=== PATIENT | male | born 1965 | race Caucasian/White ===

== ENCOUNTER → 2020-07-10 08:17 | Outpatient (CLI) | payer OTHER, SELFPAY ==
[2020-07-10 08:57] LABS: Add Manual Diff / Slide Review NO; Basophils Absolute Auto 100 /uL (0-100); Basophils Percent Auto 0.7 % (0-2); Eosinophils Absolute Auto 200 /uL (0-450); Eosinophils Percent Auto 2.3 % (2-4); Hematocrit 43.2 % (41-53); Hemoglobin 15.3 g/dL (13.5-17.5); Lymphocytes Absolute Auto 2800 /uL (1100-4500); Lymphocytes Percent Auto 36.9 % (25-40); Mean Corpuscular HGB Conc 35.4 % (30-36); Mean Corpuscular Hemoglobin 31.3 PG (26-34); Mean Corpuscular Volume 88.4 fL (80-100); Monocytes Absolute Auto 500 /uL (0-900); Monocytes Percent Auto 6.8 % (3-14); Neutrophils Absolute Auto 4100 /uL (1500-7000); Neutrophils Percent Auto 53.3 % (50-75); Platelet Count 199 X10^3/uL (150-400); Red Blood Cell Count 4.88 X10^6/uL (4.5-5.9); Red Cell Distribution Width 12.9 % (11.6-14.8); White Blood Cell Count 7.6 X10^3/uL (4.5-11.0)
[2020-07-10 09:03] LABS: Carbon Dioxide 30 mmol/L (22-32); Chloride 104 mmol/L (98-107); HEMOLYSIS < 15 (0-50); Potassium 4.4 mmol/L (3.4-5.1); Sodium 138 mmol/L (137-145)
[2020-07-10 09:04] LABS: Hemoglobin A1C% w Est Avg Glu 7.2 % (4.0-6.0)
== END ==
PROVIDERS: Referring Provider Orthopaedic Surgery; Visit Provider Orthopaedic Surgery
DX: Z01.818 Encounter for other preprocedural examination (principal); Z01.812 Encounter for preprocedural laboratory examination; R73.9 Hyperglycemia, unspecified
CPT/HCPCS: 36415; 80051; 83036; 85025; 93005; 93010

== ENCOUNTER → 2020-07-23 10:20 | Outpatient (CLI) | payer OTHER, SELFPAY ==
[2020-07-23 12:56] LABS: COVID19 -Nasal RAPID Negative (Negative)
== END ==
PROVIDERS: Visit Provider Physician Assistant
DX: Z11.59 Encounter for screening for other viral diseases (principal)
CPT/HCPCS: 87635

== ENCOUNTER 2020-07-25 10:27 | Day surgery (SDC) | payer OTHER, SELFPAY ==
[2020-07-20 09:47] VITALS: BMI 39.0
[2020-07-25] VITALS (16 sets, daily range): BP systolic 151–211; BP diastolic 67–98; PULSE 50–64; RESP 10–23; TEMP 36.1–36.7; O2SAT 92–99; BMI 39.0
--- NOTE | 2020-07-25 10:35 | DI.RAD.S_ITS ---
PROCEDURE: XR KNEE RT 1TO2V INDICATIONS: post operative right knee TECHNIQUE: 2 view(s) of the knee acquired. COMPARISON: None. FINDINGS: Bones: Patient is status post knee joint arthroplasty. Hardware components are in expected positions. Visualized bony structures are intact. Soft tissues: Overlying postoperative changes are noted. IMPRESSION: Status post right total knee arthroplasty. Dictated by: Shira Crane M.D. on 07/25/2020 at 15:59 Approved by: Shira Crane M.D. on 07/25/2020 at 15:59
[2020-07-25] MEDS: ACETAMINOPHEN 325 MG TABLET 975 MG PO (11:09)
--- NOTE | 2020-07-25 11:10 | PM.PREOP ---
Pre-operative Note COVID-19 COVID-19 status: Negative Result date/Date tested (Pos, Neg/Pending): 07/23/20 Interval Note History & Physical reviewed/Exam performed by Physician: Yes Changes to H&P: No
[2020-07-25] MEDS: PREGABALIN 75 MG CAPSULE PO (11:11)
[2020-07-25] MEDS: LACTATED RINGERS 1,000 ML 42 ML IV (11:11)
--- NOTE | 2020-07-25 11:12 | P.OP_ITS ---
Operative Date/Time/Diagnoses Date of procedure: 07/25/20 Time of procedure: 13:34 Pre-op diagnosis: Right knee osteoarthritis Post-op diagnosis: same Procedure & Clinicians Procedure: Right total knee arthroplasty Same procedure as scheduled: Yes Indications: The patient presents today for total knee arthroplasty after failure of conservative treatment. The nature of the procedure including the risks and benefits, alternatives, postoperative course and expected outcome were discussed and all questions answered. Consent was obtained. Operative site confirmed and marked. Surgeon: Flo Camacho Scoreboard Operator: Khanh Duran Anesthesia Type: General, Spinal, Peripheral nerve block and Local Operative Notes Closure Type: primary Specimen(s): none sent Prosthetic devices, grafts, tissues, transplants, or devices: Saucedo and Nephew Mark BCS: 6 femoral component, 7 tibial component, 9 mm BCS polyethylene tray and 35 x 9 mm round patella Applied: implant(s) Estimated Blood Loss (mL): 5 Blood products transfused: none Tourniquet time (min): 60 Procedure in detail: The patient was taken to the operative suite and placed under anesthesia. The patient was given prophylactic antibiotics prior to surgery. The patient was also given tranexamic acid, 1 g, just prior to surgery for postoperative hemostasis. The lateral knee was prepped and the joint injected with 20 mL of 1% Lidocaine with epinephrine. The knee was then prepped and draped in usual sterile fashion. The leg was exsanguinated with an Esmarch dressing and the tourniquet raised to 250 torr. A 15 cm anterior incision was made. Next a medial trivector arthrotomy was made. The extensor mechanism was marked to ensure accurate repair. Initial exposing dissection was carried out medially and laterally. The knee was then flexed and the intramedullary femoral guide rob placed. The distal femoral cut was made in 6? of valgus at the +2 position. The femoral size was measured and the appropriate cutting block was then placed and the anterior, posterior and chamfer cuts made. The intramedullary tibial alignment rob was then placed. The guide was set to remove approximately 11 mm from the less affected lateral side. The proximal tibial cut was then made with an oscillating saw. All meniscus and bony debris was then removed. Posterior femoral osteophytes removed with a curved osteotome. Flexion extension gaps were checked. No specific balancing was required other than routine exposure and removal of osteophytes. The soft tissues were then injected with a combination of 20 mL of half percent Marcaine with epinephrine and 20 mL of Exparel. The trial components were then placed. The knee was then extended and the patellar thickness was measured and a cut made removing approximately 9 mm of bone. The patella was then sized and drilled. Some excess lateral bone was excised and the patellofemoral ligament released. The knee went into full extension and flexion beyond 130?. There was excellent medial-lateral balance throughout motion. Patellar tracking was excellent. The trial components were removed and the knee was cleansed with Pulsavac irrigation and dried. The final components were cemented with high viscosity vacuum mixed bone cement with antibiotics. The joint was filled with a dilute Betadine solution. The knee was held in extension and the patellar clamped until the cement was adequately cured. The knee was then irrigated. The extensor mechanism was closed with 5 interrupted #1 Vicryl sutures and a running Quill suture at approximately 90 degrees of flexion. The joint was then injected with a combination of 1 g of tranexamic acid and 20 mL of quarter percent Marcaine with epinephrine. The subcutaneous tissue was closed with 2 0 Vicryl. The skin was closed with absorbable subcuticular sutures and surgical adhesive. An Aquacel dressing and Quincy wrap were then applied. The patient tolerated the procedure well and was returned to recovery room in good condition. Complications: none Post-operative Condition: stable Disposition: PACU Plan for aftercare: Proliance Joint Care Protocol.
[2020-07-25] MEDS: CELECOXIB 200 MG CAPSULE PO (11:13)
[2020-07-25] MEDS: CEFAZOLIN 2 GM/100 ML FROZ.PIGGY IV (11:58)
--- NOTE | 2020-07-25 11:59 | SUR.PREOP ---
1145 Nerve block to RLE by Dr. Amos. pt on O2 at 2L SCRAP CUTTER and continuous monitoring (see strips). Pt tolerated procedure well without pain. Stated that he didn't realize how tense he was until the pre-medication was given. present throughout process. Maintained adequate resp, oxygenation, and VS.
[2020-07-25] MEDS: LIDOCAINE 1% W/EPI 20 ML INJ (12:05)
--- NOTE | 2020-07-25 12:29 | SUR.OPER ---
Supine on padded OR bed. Pillow under head, arms secured on padded armboards <90 degree abduction. Safety belt across torso. Non-operative leg secured with tape over blanket over lower leg. Operative leg secured in DeMayo/Josue positioner. Foam padded brace at thigh of operative leg.
[2020-07-25] MEDS: BUPIVACAINE 0.25% W/ EPI (PF) 40 ML, BUPIVACAINE LIPOSOME 266 MG, SODIUM CHLORIDE 0.9% ... INJ (12:38)
[2020-07-25] MEDS: BUPIVACAINE 0.25% W/ EPI (PF) 20 ML, TRANEXAMIC ACID 1,000 MG, SODIUM CHLORIDE 0.9% 10 ML INJ (12:39)
[2020-07-25] MEDS: SODIUM CHLORIDE IRRIG SOLUTION 250 ML, POVIDONE-IODINE SPONGE STICKS 1 APPLIC IRR (12:41)
[2020-07-25] MEDS: CEFAZOLIN 1 GM VIAL IV (12:44)
--- NOTE | 2020-07-25 12:52 | P.PCN_ITS ---
Procedures Date/Time Date of procedure: 07/25/20 Time of procedure: 11:45 General Procedure description: Ultrasound guided adductor canal nerve block for post op pain control after right total knee arthroplasty by Dr. Camacho. Risk and be nefits of procedure discussed with patient. ASA monitoring applied to patient. O2 given via nasal cannula. 2 mg Versed and 50 mcg fentanyl given for procedural sedation. Skin site was prepped with chlorhexidine and allowed to fully dry. Sterile gloves, mask, hat and probe cover were used to maintain sterility. 2% lidocaine and 30ga needle was used to make a small skin wheal at needle insertion site. Under ultrasound guidance, a 21ga 100mm Pajunk needle was directed into the adductor canal near femoral artery and saphenous nerve at the level of mid thigh. Patient reported no parasthesias. After negative aspiration, 20 mL 0.5% ropivicaine and 10mg dexamethasone were injected around saphenous n erve. Patient tolerated procedure well.
--- NOTE | 2020-07-25 14:32 | SUR.PHASEI ---
Pt arrived, airway needing supplemental 02 and chin lift for patency. O2 weaned to 2/l and pt taking ice chips freely. Report called to Courtney, pt transported up on room air.
[2020-07-25] MEDS: lisinopriL 5 MG TABLET PO (15:01)
[2020-07-25] MEDS: LACTATED RINGERS 1,000 ML 100 ML IV (15:50)
[2020-07-25] MEDS: ACETAMINOPHEN 325 MG TABLET 650 MG PO ×2 (15:51→20:57)
[2020-07-25] MEDS: IBUPROFEN 400 MG TABLET PO ×2 (15:51→20:58)
--- NOTE | 2020-07-25 16:38 | PM.DS.1 ---
History of Present Illness History of Present Illness Date Patient Seen: 07/25/20 Time Patient Seen: 16:38 Chief complaint: Right Total Knee Arthroplasty *OPB* Narrative: Patient's pain is well controlled. Denies fever/ chills. No nausea /vomiting. Denies any shortness or chest pain. Discharge Providers Provider Discharge Date: 07/25/20 Primary care physician: Doctor Simona MD Consults: 07/25/20 14:36 Consult to Discharge Planning Routine Comment: Consult to Physical Therapy Evaluate & Treat Comment: Physician Instructions: postop TKA protocol Consult to Respiratory Therapy Evaluate & Treat Comment: Physician Instructions: Evaluate and treat Discharge provider: Khanh Duran PA-C Summary Hospital Course Discharge Diagnosis: Right knee osteoarthritis Hospital Course: rocedure: Right total knee arthroplasty Same procedure as scheduled: Yes Indications: The patient presents today for total knee arthroplasty after failure of conservative treatment. The nature of the procedure including the risks and benefits, alternatives, postoperative course and expected outcome were discussed and all questions answered. Consent was obtained. Operative site confirmed and marked. Surgeon: Flo Camacho Junior Underwriter: Khanh Duran Anesthesia Type: General, Spinal, Peripheral nerve block and Local Operative Notes Closure Type: primary Specimen(s): none sent Prosthetic devices, grafts, tissues, transplants, or devices: Saucedo and Nephew Mark BCS: 6 femoral component, 7 tibial component, 9 mm BCS polyethylene tray and 35 x 9 mm round patella Applied: implant(s) Estimated Blood Loss (mL): 5 Blood products transfused: none Tourniquet time (min): 60 Status at Discharge Cognitive/behavioral status at discharge: at baseline, oriented Functional status at discharge: uses cane/walker Overall status at discharge: patient is progressing back to baseline Time Spent with Patient Time spent: Less than 30 minutes Exam Vital Signs (past 8 hours): - 07/25/20 10:46 07/25/20 13:51 07/25/20 13:55 Temperature 98.1 F 97.9 F Pulse Rate 54 L 58 L 56 L Respiratory Rate 16 10 L 22 Blood Pressure 181/82 H 151/98 H 153/77 H Pulse Oximetry 98 92 98 07/25/20 14:00 07/25/20 14:05 07/25/20 14:10 Temperature Pulse Rate 54 L 56 L 62 Respiratory Rate 16 17 20 Blood Pressure 155/80 H 152/77 H 158/80 H Pulse Oximetry 98 98 98 07/25/20 14:15 07/25/20 14:25 07/25/20 14:35 Temperature 98 F 97.5 F L Pulse Rate 56 L 57 L 56 L Respiratory Rate 20 23 14 Blood Pressure 165/80 H 157/83 H 195/75 H Pulse Oximetry 98 96 99 07/25/20 15:01 07/25/20 15:05 07/25/20 15:35 Temperature 97.2 F L 97.0 F L Pulse Rate 50 L 54 L 57 L Respiratory Rate 16 16 Blood Pressure 211/88 H 158/89 H 167/75 H Pulse Oximetry 97 96 Oxygen Delivery Method Nasal Cannula Oxygen Flow Rate 0 Narrative Exam Narrative: 54-year-old male resting comfortably in bed in no apparent distress. Dressing is clean, dry and intact. Sensation grossly intact to light touch bilateral lower extremities. Motor functions intact bilateral lower extremities. Both legs are warm and dry. [facility] Medical History Acid reflux Asthma Bleeding ulcer (~1996) Bursitis of both knees Diabetes Easy bruisability Eczema Gout HTN (hypertension) Meningitis spinal (~1996) Osteoarthritis Psoriasis Sleep apnea Surgical History H/O vasectomy Hx of arthroscopy of left knee Hx of eye surgery (~2003) Hx of hernia repair Social History household members: spouse and children Smoking Status: Former smoker alcohol intake: current Discharge Assessment & Plan Assessment and Plan Assessment: Patient progressing as expected status post right total knee arthroplasty. Plan of Treatment: Patient work with physical therapy and discharged to safe to do so. Patient will need to urinate prior to leaving as well. Patient has pain meds at home. Pain meds to be taken as directed. Patient also take Tylenol and anti-inflammatory as directed. He will be on 81 mg aspirin b.i.d.. Follow-up as scheduled [facility] in 2 weeks. Discharge Plan Discharge Plan Patient Disposition: Home Discharge orders & Medications Discharge Orders: Discharge (Order); Ordered 07/25/20 Ordered By: Khanh Duran Prescriptions: Continued metformin 500 mg Tablet 1,000 mg PO SEEINSTR RF: 0 fexofenadine 180 mg Tablet 180 mg PO DAILY RF: 0 aspirin 81 mg Tablet,Delayed Release (Dr/Ec) 81 mg PO DAILY RF: 0 montelukast 10 mg Tablet 10 mg PO DAILY RF: 0 lisinopril 5 mg Tablet 5 mg PO DAILY RF: 0 levalbuterol tartrate 45 mcg/actuation Hfa Aerosol Inhaler 2 puff INHALATION Q4-6H PRN (Reason: Asthma) RF: 0 Advair HFA 230-21 mcg/actuation Hfa Aerosol Inhaler 2 puff INHALATION BID RF: 0 Novolin N NPH U-100 Insulin 100 unit/mL Suspension 40 unit SUBCUT BID RF: 0 diphenhydramine-acetaminophen [Acetaminophen PM] 25-500 mg Tablet 2 tab PO BEDTIME RF: 0 Follow up/Referrals: Khanh Duran PA-C [[employer]] - Flo Camacho MD [Physician] - 2 Weeks Doctor Jarvis MD [Primary Care Provider] - Diet/Activity/Treatments Diet: Regular Activity: Slowly progress weight-bearing and activity as tolerated. Daily knee range of motion exercises. Cold/Heat Therapy: May use ice for 20 minutes at a time as needed for pain. Other treatments: [facility]liance Joint Care Protocol. Skin/Wound/Dressing Care Report to your healthcare provider any signs of infection, such as:: chills, fever, increased pain, unusual drainage and unusual redness Dressing: May leave dressing in place until follow-up if it remains intact. May shower over the dressing as long as it remains sealed. Visit Report/Discharge Packet Instructions: DI for Knee Replacement Discharge Data Primary Care Provider: Doctor Simona Attending Provider: Flo Camacho Quality VTE Deep Vein Thrombosis/Pulmonary Embolism Present on Admission: No
--- NOTE | 2020-07-25 19:20 | PC.NURSE ---
Addendum entered by Ysabel Jaramillo R.N. 07/25/20 22:45: PVR 647 ml. Pt declined straight cath. States he will void again soon. Original Note: Pt stood up to voided and noted he had incontinent void in bed, continued to void on floor without feeling the stream. BP remains elevated. Notified Dr. Saucedo, Per MD padron to cancel discharge and bladder scan to assess for urinary retention.
[2020-07-25] MEDS: METFORMIN HCL 500 MG TABLET PO (20:57)
[2020-07-25] MEDS: diphenhydrAMINE 25 MG TABLET 50 MG PO (20:57)
[2020-07-25] MEDS: DOCUSATE 100 MG CAPSULE PO (20:57)
[2020-07-25] MEDS: CEFAZOLIN VIAL 3 GM in SODIUM CHLORIDE 0.9% 100 ML 200 ML IV (20:57)
[2020-07-25] MEDS: ASPIRIN EC 81 MG TABLET PO (20:58)
[2020-07-25] MEDS: INSULIN NPH 100 UNIT/ML VIAL 40 UNIT SUBCUT (20:59)
[2020-07-26] MEDS: IBUPROFEN 400 MG TABLET PO ×3 (00:34→08:33)
[2020-07-26 00:38] VITALS: BP 134/78; PULSE 61; RESP 20; TEMP 36.3; O2SAT 94
--- NOTE | 2020-07-26 00:41 | PC.NURSE ---
Patient is alert and oriented. Breath sounds CTA with RA sat of 94%. HRR. Denies nausea. BT hypoactive and denies flatus as yet. Voiding per urinal; denies dysuria, frequency or urgency. Is able to move himself in bed. Gait not assessed at this time but reports he was up earlier with walker and 1 assist to stand at bedside to void. Aquacel dressing covered with av wrap to right knee is CDI. States knee pain is 2/10 and was medicated with scheduled Ibuprofen and ice packs applied; declines any stronger pain medication. CMS is intact. Wearing bilateral calf SCD's. Fall risk score is high and bed alarm ativated.
[2020-07-26] MEDS: CEFAZOLIN VIAL 3 GM in SODIUM CHLORIDE 0.9% 100 ML 200 ML IV (04:52)
[2020-07-26] MEDS: SODIUM CHLORIDE 0.9% FLUSH 10 ML IV ×2 (04:55→08:32)
[2020-07-26 05:42] VITALS: BP 148/71; PULSE 73; RESP 20; TEMP 36.5; O2SAT 95
[2020-07-26 06:47] LABS: Hematocrit 39.7 % (41-53); Hemoglobin 13.8 g/dL (13.5-17.5)
--- NOTE | 2020-07-26 07:38 | PM.PNPO.1 ---
Subjective Subjective Date Patient Seen: 07/26/20 Time Patient Seen: 07:38 Interval history: POD #1 s/p R TKA with Dr. Camacho. Patients pain is well controlled with Tylenol. He has his pain medications at home already. No complaints this AM. Exam Vital Signs (past 8 hours): - 07/26/20 00:38 07/26/20 05:42 Temperature 97.4 F L 97.7 F Pulse Rate 61 73 Respiratory Rate 20 20 Blood Pressure 134/78 148/71 H Pulse Oximetry 94 95 Oxygen Delivery Method Room Air Oxygen Flow Rate 0 Narrative Exam Narrative: Patient lying in bed in NAD. He is alert and oriented X3. Calves are soft, compressible, and nontender bilaterally. SILT throughout BLEs. He is able to actively dorsiflex and plantarflex. Objective Labs Result Diagrams: 07/26/20 06:30 Labs: Laboratory Results - last 24 hr 07/26/20 06:30 Hgb 13.8 Hct 39.7 L PFSH Medical History Acid reflux Asthma Bleeding ulcer (~1996) Bursitis of both knees Diabetes Easy bruisability Eczema Gout HTN (hypertension) Meningitis spinal (~1996) Osteoarthritis Psoriasis Sleep apnea Surgical History H/O vasectomy Hx of arthroscopy of left knee Hx of eye surgery (~2003) Hx of hernia repair Social History household members: spouse and children Smoking Status: Former smoker alcohol intake: current Assessment & Plan Post-op Postoperative Procedures: Procedures Operation Date: 07/25/20 12:00 Actual Procedures Side Surgeon p Total Knee Arthroplasty Right Flo Camacho MD Patient will mobilize with PT today. Continue current pain control. ASA for VTE prophylaxis. Patient will likely DC home today. Quality VTE Deep Vein Thrombosis/Pulmonary Embolism Present on Admission: No
[2020-07-26 08:00] VITALS: BP 131/68; PULSE 63; RESP 16; TEMP 36.6; O2SAT 94
[2020-07-26] MEDS: ACETAMINOPHEN 325 MG TABLET 650 MG PO (08:30)
[2020-07-26 08:31] VITALS: BP 131/68; PULSE 63
[2020-07-26] MEDS: MONTELUKAST 10 MG TABLET PO (08:31)
[2020-07-26] MEDS: lisinopriL 5 MG TABLET PO (08:31)
[2020-07-26] MEDS: ASPIRIN EC 81 MG TABLET PO (08:31)
[2020-07-26] MEDS: METFORMIN HCL 500 MG TABLET 1000 MG PO (08:31)
[2020-07-26] MEDS: DOCUSATE 100 MG CAPSULE PO (08:32)
[2020-07-26] MEDS: LORATADINE 10 MG TABLET PO (08:33)
[2020-07-26] MEDS: INSULIN NPH 100 UNIT/ML VIAL 40 UNIT SUBCUT (08:39)
--- NOTE | 2020-07-26 09:05 | CM.DANOTE ---
DCP: Case received, EMR reviewed and met with patient. Introduced self and role. Was able to obtain information from patient regarding his baseline activity status prior to hospitalization. DCP assessment completed with information currently available. Patient is a 54 year old male who admitted yesterday morning to the care of the orthopedic team. PCP: Dr. Stevens. Payer: [facility]. Patient came to the hospital for a surgical procedure. He had a right total knee arthsoplasty. Patient has history of osteoarthritis of his right knee. Met with patient in his room. He was sitting up in bed, he is alert and oriented. He resides in [facility] with his spouse, Tracee. He is independent at baseline, but does use a cane for home use. He is employed at [employer] P: Patient is to discharge home today and will work with P.T. before discharge. Zahra Serrano RN/Slot Floor Attendant
--- NOTE | 2020-07-26 10:45 | PC.NURSE ---
Patient educated about diet, exercise, range of motion, signs and symptoms of infection, medications, incision site, falls, SS of stroke. Patient leaving facility via wheelchair and private vehicle w/ . Patient did not have any prescriptions. Patient left facility w/ all belongings.
--- NOTE | 2020-07-26 11:40 | PT.IIE ---
Current Diagnoses Unilateral primary osteoarthritis, right knee (07/25/20) Surgery Performed Operation Date: 07/25/20 12:00 Actual Procedures p Total Knee Arthroplasty(Right) - Flo Camacho MD Surgical History (Last Reviewed 07/26/20 @ 12:04 by Rehana Frank PA-C) H/O vasectomy Hx of arthroscopy of left knee Hx of eye surgery (~2003) Hx of hernia repair Medical History (Last Reviewed 07/26/20 @ 12:04 by Rehana Frank PA-C) Acid reflux Asthma Bleeding ulcer (~1996) Bursitis of both knees Diabetes Easy bruisability Eczema Gout HTN (hypertension) Meningitis spinal (~1996) Osteoarthritis Psoriasis Sleep apnea Physical Therapy Inpatient Evaluation/Re-Eval M1 PT/OT-IP Prior Functional Status Start: 07/26/20 09:05 Freq: NEEDED Status: Discharge Protocol: Document 07/26/20 11:36 DE (Rec: 07/26/20 12:01 DE [id number]) Medical Review Prior Functional Status Medical History Reviewed Yes Diet/Fluid Consistency Regular Communication WNL. No deficits noted. Able to make needs known. Mobility and Gait IND for all mobility and amb without AD. Amb distance was limited to 1/4 mile d/t knee pain. Activities of Daily Living and IADL's IND for all ADLs and IADLs without AD at baseline except for donning/doffing R sock d/t lack of knee flexion. Social History Household Members spouse,children Living Arrangements House Number of Floors (Floors) Two Floors Number of Stairs To Enter/Railing? 2 EDWAR with B railing but only can reach one side. 10 steps inside but doesn't need to do the stairs. Home Environment High Toilet,Tub/Shower Home Equipment Front Wheel Walker,Straight Cane,Grinder Gear Employment Status [employer] Employed Additional Social History Comment Pt lives with spouse and daughter. Spouse took this week off from work. M2 PT-IP Current Condition Start: 07/26/20 09:05 Freq: NEEDED Status: Discharge Protocol: Document 07/26/20 11:36 DE (Rec: 07/26/20 12:01 DE [id number]) Physical Therapy Current Condition Current Condition Evaluation Date 07/26/20 Treatment Diagnosis R TKA; Difficulty in walking. Onset Date 07/25/20 Weight Bearing Status Weight Bearing Status Weight Bear as Tolerated M3 PT-IP Subjective Start: 07/26/20 09:05 Freq: NEEDED Status: Discharge Protocol: Document 07/26/20 11:36 DE (Rec: 07/26/20 12:01 DE [id number]) Subjective Physical Therapy Visit Type Type Initial Evaluation Visit Start Time 09:48 Visit Stop Time 10:16 Total Visit Minutes 28 Notes SPT Flo led session under direct supervision of PT Jordyn. Number of PLANER HAND Visits 0 Physical Therapy Visit Comments Patient Comments Pt is agreeable to do PT. Therapy Pain Assessment Pain When Pain Assessed During Weight Bearing Pain Present Pain Present Pain Reported Location Right Knee Intensity 3 Scale Used Numeric (0 - 10) Description Aching Pain Behaviors Calling Out Pain Management Techniques Timing of Activity with Medications M4 PT-IP Mobility and Gait Start: 07/26/20 09:05 Freq: NEEDED Status: Discharge Protocol: Document 07/26/20 11:36 DE (Rec: 07/26/20 12:01 DE [id number]) PT-Bed Mobility Assessment Supine to Sit Supine to Sit Standby Assistance PT-Transfer Assessment Sit to and From Stand Sit to and from Stand Contact Guard Assistance,Use of Upper Extremities Equipment Transfer Assistive Device Gait Belt,Front Wheeled Walker Orthotic/Prosthetic Devices or Brace: No Transfers Transfer Destination Chair Transfer Technique Amb with FWW Transfer Ability Level of Assist Contact Guard Assistance,Use of Upper Extremities Comments Mobility Comments Pt was inclined in bed upon arrival. Pt completed supine to sit at R EOB with SBA and use of BUE. Pt performed sit to stand with FWW CGA. Pt denied any dizziness or lightheadness. Pt then amb ~ 120 ft in the hallway to the stairs and back to the room with FWW CGA. Pt initially picked up the FWW but cues were provided to roll it. Pt demonstrated antalgic step- through gait pattern with decreased stride length, decreased feet clearance, and decreased gait speed. Pt had shorter step length with the L foot d/t limited WB on his RLE. Pt performed 3 steps x3 with CGA. Cues were provided to lead with the L foot for ascending and to lead with the R foot for descending. Pt demonstrated understanding. The first time, pt used B railing. The second time, pt used L railing going up. The third time, pt used R railing going up. Pt was steady without any LOB throughout all 3 trials. Pt amb back to the room and sat down in the chair comfortably. Call light placed within reach. Gait Assessment Gait Gait Assistance Required: Contact Guard Assist Distance (Feet) 120 Able to Maintain Weight Bearing Status Yes During Gait Assistive Devices Assistive Device Gait Belt,Front Wheeled Walker Orthotic/Prosthetic Devices or Brace: No Gait Deviations General Gait Pattern Antalgic,Decreased Stride Length,Decreased Feet Clearance Factors Limiting Gait Function Factors Limiting Gait Function Decreased Activity Tolerance, Decreased Strength,Limited Range of Motion,Pain,Poor Balance Comments Gait Comments See mobility comments. Stair Climbing Assessment Evaluation Level of Assist On Stairs Contact Guard Assistance Devices Stair Climbing Assistive Devices Left Railing,Right Railing Technique/Endurance Stair Climbing Direction Ascend and Descend Stair Climbing Technique Step to Step Number of Steps Climbed 3 Query Text: Stair Climbing Set # Repetitions (reps) 3 Comments Stair Climbing Comments See mobility comments. PT-Balance Assessment Sitting Balance and Reactions Static Sitting Balance Ability Normal Dynamic Sitting Balance Ability Normal Standing Balance and Reactions Static Standing Balance Ability Good Dynamic Standing Balance Ability Good M5 PT-IP Objective Assessments Start: 07/26/20 09:05 Freq: NEEDED Status: Discharge Protocol: Document 07/26/20 11:36 DE (Rec: 07/26/20 12:01 [place] [id number]) Orientation Orientation/Cognition Level of Alertness Alert Orientation Name,Age,Birthday,Month,Date, Year,Day of Week,Place, Situation Language Function Ability No Deficits Noted Safety Awareness Understands Safety Issues Memory Description No Deficits Noted Gross Range of Motion Lower Extremity ROM Assessment Right Impaired Impairments R knee extension lacking ~5-10 deg R knee flexion ~100 deg Strength Lower Extremity Strength Assessment Right Impaired Coordination Assessment Gross Coordination Gross Coordination WNL Sensation Assessment Sensation Gross Sensation WNL Light Touch Intact Muscle Tone Muscle Tone WNL Yes M6 PT-IP Treatment Start: 07/26/20 09:05 Freq: NEEDED Status: Discharge Protocol: Document 07/26/20 11:36 DE (Rec: 07/26/20 12:01 [place] [id number]) Physical Therapy Treatment Exercises Exercises Ankle Pumps,Gluteal Sets,Quad Sets,Heel Slides Education Education Provided Weight Bearing Status,Post-Op Packet,Safety Other Treatments Other Treatment Performed Provided education on knee ROM , safety, and role of PT. M7 PT-IP Assessment and Plan Start: 07/26/20 09:05 Freq: NEEDED Status: Discharge Protocol: Document 07/26/20 11:36 DE (Rec: 07/26/20 12:01 DE [id number]) PT Summary Assessment and Plan Potential Rehabilitation Potential Good Status of Condition at Evaluation Stable Summary Impairments Pain,ROM,Strength,Balance,Bed Mobility,Transfers,Gait, Activity Tolerance Progress Towards Goals Safe For Discharge Assessment Summary Dennis is a 54 yo male POD1 s/ p R TKA. At baseline, pt is IND for all mobility and amb without AD but has amb distance limited to 1/4 mile d /t knee pain. Pt is IND for all ADLs and IADLs except for donning/doffing R sock d/t difficulty bending the knee. On evaluation, pt required CGA -SBA for all mobility, transfers, amb, and stair climbing. Pt amb ~120 ft with FWW CGA and performed 3 steps x2 with unilateral railing without any unsteadiness or LOB. PT anticipates pt will be safe to d/c home with assistance once medically cleared. Pt will benefit from outpatient PT to improve knee ROM and strength. Frequency of Treatment Frequency Of Treatment Discharge Recommendations To Nursing Amount of Assist Needed 1 Person Assist Discharge Recommendations PT Discharge Recommendations Home with Assistance, Outpatient PT Transportation Needs at Discharge Private Vehicle Treatment was provided by Flo Clayton, TIMOTHY and supervised by Jordyn Prasad, PT. I personally reviewed this note and agree with its contents.
== END 2020-07-26 11:09 | disposition home or self-care (01) ==
LOC: OR 10:28 → AC 10:28
PROVIDERS: Referring Provider Orthopaedic Surgery; Visit Provider Orthopaedic Surgery
PROC: 0SRC0JZ Replacement of Right Knee Joint with Synthetic Substitute, Open Approach (ICD-10-PCS; CPT 27447; principal; 2020-07-25 12:00)
DX: M17.11 Unilateral primary osteoarthritis, right knee (principal); I10 Essential (primary) hypertension; E11.9 Type 2 diabetes mellitus without complications; Z79.4 Long term (current) use of insulin; G47.33 Obstructive sleep apnea (adult) (pediatric); J45.20 Mild intermittent asthma, uncomplicated
CPT/HCPCS: 27447; 36415; 64450; 73560; 82962; 85014; 85018; 94760; 97116; 97161; C1776; C9290; J0690; J1100; J2250; J2405; J2704; J3010

== ENCOUNTER → 2021-12-25 09:07 | Outpatient (CLI) | payer OTHER, SELFPAY ==
[2020-07-25 14:40] VITALS: BMI 39.0
[2021-12-25 12:00] LABS: COVID19 -Nasal RAPID Negative (Negative)
== END ==
PROVIDERS: Visit Provider Family Medicine Sleep Medicine
DX: Z20.822 Contact with and (suspected) exposure to COVID-19 (principal)
CPT/HCPCS: 87635; C9803

== ENCOUNTER 2021-12-26 06:01 | Day surgery (SDC) | payer OTHER, SELFPAY ==
[2020-07-25 14:40] VITALS: BMI 39.0
[2021-12-18 08:07] VITALS: BMI 37.2
[2021-12-26] VITALS (15 sets, daily range): BP systolic 125–170; BP diastolic 66–86; PULSE 51–448; RESP 11–18; TEMP 35.6–36.6; O2SAT 92–99; BMI 37.2
--- NOTE | 2021-12-26 06:36 | DI.RAD.S_ITS ---
PROCEDURE: XR HIP W PEL IF DONE RT 2V INDICATIONS: right LUIS, posterior TECHNIQUE: AP pelvis and lateral view of the right hip acquired. COMPARISON: None. FINDINGS: Bones: Patient is status post right hip arthroplasty, with hardware components in expected positions. The hip joint appears congruent. The visualized bony structures appear intact. Soft tissues: Overlying postoperative changes are noted. No suspicious soft tissue densities. IMPRESSION: Postop changes from right total hip arthroplasty with anatomic right hip alignment. Dictated by: Meño Pascal M.D. on 12/26/2021 at 12:00 Approved by: Meño Pascal M.D. on 12/26/2021 at 12:00
[2021-12-26] MEDS: VANCOMYCIN 1,000 MG/200 ML PIGGYBACK 200 MG IV (06:47)
[2021-12-26] MEDS: ACETAMINOPHEN 325 MG TABLET 975 MG PO (06:48)
[2021-12-26] MEDS: PREGABALIN 75 MG CAPSULE PO (06:48)
[2021-12-26] MEDS: LACTATED RINGERS 1,000 ML 42 ML IV ×2 (06:52→09:48)
--- NOTE | 2021-12-26 07:26 | PM.PREOP ---
Pre-operative Note COVID-19 COVID-19 status: Negative Interval Note History & Physical reviewed/Exam performed by Physician: Yes Changes to H&P: No
--- NOTE | 2021-12-26 07:27 | PM.OP.1 ---
Operative Date/Time/Diagnoses Date of procedure: 12/26/21 Time of procedure: 08:00 Pre-op diagnosis: Right hip OA and AVN Post-op diagnosis: same Procedure & Clinicians Procedure: Right total hip arthroplasty posterior approach Same procedure as scheduled: Yes Indications: The patient has had progressively worsening right hip pain with radiographic changes consistent with arthritis. Non-operative management has failed and the patient has requested total hip replacement. The risks, benefits and alternatives to surgery were discussed with the patient prior to proceeding. Risks discussed included, but were not limited to, failure to relieve pain, leg length discrepancy, dislocation, stiffness, infection, nerve damage, deep venous thrombosis, pulmonary embolism, stroke, coma, heart attack, permanent paralysis and , as well as the potential need for eventual revision of the prosthetic. Surgeon: Cynthia Saucedo Stainless Steel Finisher: Khanh Duran Anesthesia Type: General and Spinal Operative Notes Findings: Severe right hip osteoarthritis, adequate stability, adequate bone Closure Type: primary Specimen(s): none sent Prosthetic devices, grafts, tissues, transplants, or devices: Saucedo and nephew anthology size 8 high offset, 58 mm R3 cup, neutral poly liner 58 x 36, Oxinium +0 head,one 6.5 mm screw Applied: drain(s) Estimated Blood Loss (mL): 250 Blood products transfused: none Procedure in detail: The patient was seen in the pre-operative area, where the patient identified the right hip as the operative site and this was marked with my initials. The patient received pre-operative antibiotics and was taken to the operating room and placed on the operative table in the left lateral decubitus position after satisfactory anesthesia. A time study observer out was performed. The right leg was prepared from the ankle to the iliac crest with ChloroPrep in the usual fashion and draped through sterile drapes. The hip was approached through an approximately 20 cm incision centered over the greater trochanter and curving gently posteriorly as it went proximally. This was carried sharply to the fascia julio cesar, which was divided and retracted with a self retaining retractor. The trochanteric bursa was excised with care being taken to avoid the sciatic nerve, which was identified and protected throughout the case. The short external rotators were incised and the capsulomuscular flap was raised and tagged for later repair. The hip was dislocated, and a femoral neck osteotomy performed approximately 15 mm above the lesser trochanter. Retractors were placed around the femur. The canal was opened with a box cutting osteotome, followed by a T handled reamer and a lateralizing reamer. The chili pepper broach was then used, followed by sequential broaching until there was good stability of the broach in the femur. Retractors were placed to expose the acetabulum. The labrum and central soft tissues were removed. Reaming was performed initially going up in 2 mm increments, then 1 mm increments until good bite was obtained with an odd sized reamer. The cup 1 mm larger than the last reamer was then inserted using the appropriate anteversion guides. It was further stabilized with a single screw. A trial neutral liner was placed. The broach was placed in the canal. A trial head and neck were then placed and the hip relocated and checked for leg length and stability. An intraoperative film confirmed the component position and no evidence of fracture. The patient was stable in the position of sleep, of squatting, and could be put through a range of motion with 45 degrees internal rotation without dislocation. At 90 degrees flexion, internal rotation to 70 was possible before dislocation. This was felt to be satisfactory and the appropriate components were opened, and the trials were removed. The acetabular liner was impacted into position. The final stem was then impacted into the prepared femoral canal. The hip was meticulously irrigated with normal saline. Finally the femoral head was impacted onto the stem. The acetabulum was cleared of all material and the hip relocated one final time. The capsulomuscular flap was then repaired to the greater trochanter though an awl hole using the tag sutures. The short external rotators were repaired with a nonabsorbable suture. A deep drain was placed and brought out anteriorly. The fascia julio cesar was closed with Vicryl. The subcutaneous layer was closed with barbed sutures and SteriStrips. An kimberly dressing was applied and the patient was taken to recovery having tolerated the procedure well. Complications: none Post-operative Condition: stable Disposition: Acute Care Plan for aftercare: The patient will be maintained on a standard total hip replacement protocol with weight bearing as tolerated and posterior hip precautions. The patient will receive Aspirin and sequential compression devices for DVT prophylaxis. The patient will be discharged home when safe for the home environment.
[2021-12-26] MEDS: CEFAZOLIN 2 GM/20 ML SYRINGE IV ×3 (08:10→23:20)
[2021-12-26] MEDS: TRANEXAMIC ACID 1,000 MG VIAL 2000 MG INJ ×2 (08:11→09:34)
--- NOTE | 2021-12-26 08:31 | SUR.OPER ---
Lateral on padded OR bed. Gel axillary roll. Arms secured on padded armboard with pillow supporting top arm. Padded hip positioner braces x4 - anterior and posterior chest and pelvis. Additional gel pad used anterior pelvis. Gel pad under bottom leg from knee to foot and secured with tape over sheet.
[2021-12-26] MEDS: BUPIVACAINE LIPOSOME 266 MG/20 ML VIAL INJ (08:41)
[2021-12-26] MEDS: BUPIVACAINE 0.5% (PF) VIAL 30 ML INJ (08:47)
[2021-12-26] MEDS: BUPIVACAINE 0.25% (PF) 60 ML, EPINEPHrine 0.3 MG INJ (08:48)
--- NOTE | 2021-12-26 09:00 | DI.RAD.S_ITS ---
PROCEDURE: XR PELVIS 1-2V INDICATIONS: INNER OP RIGHT TECHNIQUE: Intra-operative view of the pelvis and hip acquired. COMPARISON: None. FINDINGS: Bones: Intraoperative devices prior to placement of arthroplasty prostheses are in expected positions. No fractures or suspicious bony lesions. Soft tissues: Overlying surgical retractors are present, along with other intraoperative changes. IMPRESSION: Expected intraoperative device positioning prior to placement of arthroplasty prosthesis. Dictated by: Bee Hernandez MD, PhD on 12/26/2021 at 14:25 Approved by: Bee Hernandez MD, PhD on 12/26/2021 at 14:29
[2021-12-26] MEDS: ONDANSETRON 4 MG/2 ML INJ IV (10:35)
[2021-12-26] MEDS: OXYCODONE IR 5 MG TABLET PO (10:35)
[2021-12-26] MEDS: IBUPROFEN 400 MG TABLET PO ×3 (13:02→23:21)
[2021-12-26] MEDS: ACETAMINOPHEN 325 MG TABLET 650 MG PO ×3 (13:02→23:20)
[2021-12-26] MEDS: LACTATED RINGERS 1,000 ML 125 ML IV ×2 (13:10→23:21)
--- NOTE | 2021-12-26 14:10 | PT.IIE ---
Current Diagnoses Unilateral primary osteoarthritis, right hip (12/26/21) Surgery Performed Operation Date: 12/26/21 07:45 Actual Procedures p Total Hip Arthroplasty(Right) - Cynthia Saucedo MD Medical History (Last Updated 12/18/21 @ 09:13 by Stefnay Strange, RN) Acid reflux Asthma Bleeding ulcer (~1996) Bursitis of both knees Diabetes Easy bruisability Eczema Gout HTN (hypertension) Meningitis spinal (~1996) Osteoarthritis Psoriasis Sleep apnea Torn rotator cuff (01/2021) Physical Therapy Inpatient Evaluation/Re-Eval M1 PT/OT-IP Prior Functional Status Start: 12/26/21 16:02 Freq: NEEDED Status: Active Protocol: Document 12/26/21 14:10 AB (Rec: 12/26/21 16:18 AB [id number]) Medical Review Prior Functional Status Medical History Reviewed Yes Communication able to make needs known Mobility and Gait pt stated that he is independent with all mobilities and ambulation without AD Social History Household Members spouse,children Living Arrangements House Number of Floors (Floors) One Floor Number of Stairs To Enter/Railing? pt will be staying at his brother's house one step to enter Home Environment Standard Height Toilet,Walk in Shower,Tub/Shower Home Equipment Front Wheel Walker,Hand Held Shower M2 PT-IP Current Condition Start: 12/26/21 16:02 Freq: NEEDED Status: Active Protocol: Document 12/26/21 14:10 AB (Rec: 12/26/21 16:18 AB [id number]) Physical Therapy Current Condition Current Condition Evaluation Date 12/26/21 Treatment Diagnosis S/P R LUIS posterior approach; difficulty in walking Onset Date 12/26/21 M3 PT-IP Subjective Start: 12/26/21 16:02 Freq: NEEDED Status: Active Protocol: Document 12/26/21 14:10 AB (Rec: 12/26/21 16:18 AB [id number]) Subjective Physical Therapy Visit Type Type Initial Evaluation Visit Start Time 14:10 Visit Stop Time 15:20 Total Visit Minutes 70 Number of CONTINUOUS IMPROVEMENT ANALYST Visits 0 Physical Therapy Visit Comments Patient Comments agreeable to do PT Therapy Pain Assessment Pain When Pain Assessed At Rest Pain Present Pain Present Pain Reported Location Right Knee Intensity 7 Scale Used Numeric (0 - 10) Pain Management Techniques Apply Cold,Distraction, Modification of Treatment,Re- positioning,Timing of Activity with Medications M4 PT-IP Mobility and Gait Start: 12/26/21 16:02 Freq: NEEDED Status: Active Protocol: Document 12/26/21 14:10 AB (Rec: 12/26/21 16:18 AB [id number]) PT-Bed Mobility Assessment Supine to Sit Supine to Sit Standby Assistance Sit to Supine Sit to Supine Standby Assistance PT-Transfer Assessment Sit to and From Stand Sit to and from Stand Contact Guard Assistance, Minimal Assistance,1 Person Assistance,Use of Upper Extremities Equipment Transfer Assistive Device Front Wheeled Walker Orthotic/Prosthetic Devices or Brace: No Comments Mobility Comments educated pt and pt's brother regarding posterior hip precautions. pt was able to recall. completed supine to sit SBA. able to sit on EOB SBA. completed sit to stand min A and cues. pt has a tendency to internally rotate RLE and assisted to prevent due to hip precautions. pt ambulated in room using FWW ~ 10 ft CGA. pt sat back on EOB . pt plans to go home later tonight depending on pain level. caregiver training conducted. educated pt's brother regarding use of safety belt and how to assist pt. brother was able to put safety belt on pt. assisted pt with sit to stand min A and cues and ambulated pt towards the step. educated pt and brother on stair climbing. completed up platform step using FWW with pt's brother assisting him with cues from PT. completed again without cues needed from PT. pt ambulated back to his room. educated pt on sit<> stand techniques x 5 reps. initially requiring min A and max cues. towards the last two repetitions, pt was able to complete with CGA. pt's brother was able to assist pt safely. pt completed sit to supine SBA . positioned pt in bed. call light and table placed within reach. Gait Assessment Gait Gait Assistance Required: Contact Guard Assist,1 Person Assist Distance (Feet) 40 Able to Maintain Weight Bearing Status Yes During Gait Assistive Devices Assistive Device Gait Belt,Front Wheeled Walker Orthotic/Prosthetic Devices or Brace: No Gait Deviations General Gait Pattern Antalgic,Decreased Stride Length,Decreased Feet Clearance Factors Limiting Gait Function Factors Limiting Gait Function Decreased Activity Tolerance, Decreased Strength,Limited Range of Motion,Pain,Poor Balance,Poor Safety Awareness Stair Climbing Assessment Evaluation Level of Assist On Stairs Minimal Assistance Devices Stair Climbing Assistive Devices Front Wheel Walker Technique/Endurance Stair Climbing Direction Ascend and Descend Stair Climbing Technique Step to Step Number of Steps Climbed 1 Query Text: Stair Climbing Set # Repetitions (reps) 2 PT-Balance Assessment Sitting Balance and Reactions Static Sitting Balance Ability Good Dynamic Sitting Balance Ability Good Standing Balance and Reactions Static Standing Balance Ability Fair Dynamic Standing Balance Ability Fair Device Used FWW M5 PT-IP Objective Assessments Start: 12/26/21 16:02 Freq: NEEDED Status: Active Protocol: Document 12/26/21 14:10 AB (Rec: 12/26/21 16:18 AB [id number]) Orientation Orientation/Cognition Level of Alertness Alert Orientation Name,Age,Situation Language Function Ability No Deficits Noted Safety Awareness Decreased Safety Awareness Memory Description Short Term Impaired Gross Range of Motion Lower Extremity ROM Assessment Within Functional Limits Strength Lower Extremity Strength Assessment Bilaterally Impaired Hip 4-/5 Knee 3+/5 Coordination Assessment Gross Coordination Gross Coordination WNL Sensation Assessment Sensation Gross Sensation WNL Muscle Tone Muscle Tone WNL Yes M6 PT-IP Treatment Start: 12/26/21 16:02 Freq: NEEDED Status: Active Protocol: Document 12/26/21 14:10 AB (Rec: 12/26/21 16:18 AB [id number]) Physical Therapy Treatment Education Education Provided Precautions,Weight Bearing Status,Post-Op Packet,Safety M7 PT-IP Assessment and Plan Start: 12/26/21 16:02 Freq: NEEDED Status: Active Protocol: Document 12/26/21 14:10 AB (Rec: 12/26/21 16:18 AB [id number]) PT Summary Assessment and Plan Potential Rehabilitation Potential Good Status of Condition at Evaluation Stable Summary Impairments Pain,ROM,Strength,Balance, Coordination,Sensation,Tone, Cognition,Bed Mobility, Transfers,Gait,Activity Tolerance Assessment Summary pt requiring CGA to min A with mobility using FWW. pt will stay at his brother's house and brother will assist pt. caregiver training conducted and pt's brother was able to safely assist pt. pt may go home when medically stable. Goals Bed Mobility Goal Independent Transfer Goal Independent,Front Wheeled Walker Gait Goal Independent,Front Wheel Walker Gait Distance 200 Other Goals up/down 1 step using fWW Days to Meet Goals 3 Frequency of Treatment Frequency Of Treatment Twice a Day Treatment Plan Physical Therapy Treatment Plan Bed Mobility Training,Transfer Training,Gait Training, Therapeutic Exercise,Balance Retraining,Post Op Education, Discharge Planning,Hot or Cold Pack,Neuromuscular Re-ed, Coordination Retraining,Manual Therapy Precautions Posterior Hip Precautions No Hip Flexion > 90 degrees,No Hip Internal Rotation,No Hip Adduction Weight Bearing Status Weight Bearing Status Weight Bear as Tolerated Allowed Weight Bearing Amount (enter % RLE WBAT or #) (%) Recommendations To Nursing Amount of Assist Needed 1 Person Assist Discharge Recommendations PT Discharge Recommendations Home with Assistance, Outpatient PT Transportation Needs at Discharge Private Vehicle
[2021-12-26] MEDS: OXYCODONE IR 10 MG TABLET PO ×2 (14:35→22:05)
[2021-12-26] MEDS: ALBUTEROL 2.5 MG/3 ML NEB (ADULT) INH ×2 (15:17→19:36)
--- NOTE | 2021-12-26 18:12 | PC.NURSE ---
Pt arrived from PACU to room 217 this afternoon. Pt is A&Ox4. He denies dizziness, nausea, vomiting. Hemovac to R hip and SKIP dressing with NORMA wrap C/D/I with flashing green light. Pt reports increased sensation to BLE's almost to normal. PT at bedside helping patient to EOB and to do evaluation, he complains of pain 7/10 pain and is medicated with prn 10 mg oxycodone as well as scheduled tylenol and ibuprofen. Upon reassessment he reports pain to R hip is 2/10. LR at 100 ml/hr, scheduled antibiotics given. RT assissting patient, he is able to reach 3000 on IS. Continuous monitoring.
[2021-12-26] MEDS: BUDESONIDE 0.5 MG/2 ML NEB INH (19:36)
[2021-12-26] MEDS: ASPIRIN EC 81 MG TABLET PO (21:08)
[2021-12-26] MEDS: DOCUSATE 100 MG CAPSULE PO (21:08)
[2021-12-26] MEDS: INSULIN NPH 100 UNIT/ML VIAL 40 UNIT SUBCUT (21:23)
[2021-12-27 02:50] VITALS: BP 137/78; PULSE 63; RESP 12; TEMP 36.2; O2SAT 94
[2021-12-27 06:31] LABS: Hematocrit 37.6 % (41-53); Hemoglobin 12.8 g/dL (13.5-17.5)
[2021-12-27] MEDS: ALBUTEROL 2.5 MG/3 ML NEB (ADULT) INH (07:45)
[2021-12-27 07:46] VITALS: PULSE 55; RESP 18; O2SAT 95
[2021-12-27] MEDS: BUDESONIDE 0.5 MG/2 ML NEB INH (07:51)
[2021-12-27] MEDS: IBUPROFEN 400 MG TABLET PO (08:29)
[2021-12-27] MEDS: ACETAMINOPHEN 325 MG TABLET 650 MG PO (08:29)
[2021-12-27] MEDS: ASPIRIN EC 81 MG TABLET PO (08:29)
[2021-12-27] MEDS: LORATADINE 10 MG TABLET PO (08:30)
[2021-12-27] MEDS: MONTELUKAST 10 MG TABLET PO (08:30)
[2021-12-27 08:31] VITALS: BP 137/78; PULSE 60
[2021-12-27] MEDS: lisinopriL 5 MG TABLET PO (08:31)
[2021-12-27] MEDS: INSULIN NPH 100 UNIT/ML VIAL 40 UNIT SUBCUT (08:33)
[2021-12-27] MEDS: PIOGLITAZONE 15 MG TABLET 30 MG PO (08:34)
[2021-12-27] MEDS: DOCUSATE 100 MG CAPSULE PO (08:42)
--- NOTE | 2021-12-27 08:56 | P.DS_ITS ---
History of Present Illness History of Present Illness Date Patient Seen: 12/27/21 Time Patient Seen: 08:56 Chief complaint: Hip pain Narrative: Patient's pain is [id number]. Denies fever or chills. No nausea vomiting. Patient has his brother home in available to assist him. Discharge Providers Provider Discharge Date: 12/27/21 Primary care physician: Doctor Simona MD Consults: 12/18/21 09:22 Consult to Anesthesiology Routine Comment: Consulting Provider: Anesthesiologist Reason for consultation: Surgeon requested re: Diabetes 12/26/21 06:36 Consult to Anesthesiology Routine Comment: Consulting Provider: Anesthesiologist Reason for consultation: Regional block for post operative pain control 12/26/21 10:41 Consult to Discharge Planning Routine Comment: Consult to Physical Therapy Evaluate & Treat Comment: Discharge to home tonight if does well with therap Physician Instructions: post op LUIS protocol Consult to Respiratory Therapy Evaluate & Treat Comment: Physician Instructions: Evaluate and treat Discharge provider: Khanh Duran PA-C Summary Hospital Course Discharge Diagnosis: Right hip OA and AVN Hospital Course: Right total hip arthroplasty posterior approach Same procedure as scheduled: Yes Indications: The patient has had progressively worsening right hip pain with radiographic changes consistent with arthritis. Non-operative management has failed and the patient has requested total hip replacement. The risks, benefits and alternatives to surgery were discussed with the patient prior to proceeding. Risks discussed included, but were not limited to, failure to relieve pain, leg length discrepancy, dislocation, stiffness, infection, nerve damage, deep venous thrombosis, pulmonary embolism, stroke, coma, heart attack, permanent paralysis and , as well as the potential need for eventual revision of the prosthetic. Surgeon: Cynthia Saucedo Replanting Machine Crew: Khanh Duran Anesthesia Type: General and Spinal Operative Notes Findings: Severe right hip osteoarthritis, adequate stability, adequate bone Closure Type: primary Specimen(s): none sent Prosthetic devices, grafts, tissues, transplants, or devices: Saucedo and nephew anthology size 8 high offset, 58 mm R3 cup, neutral poly liner 58 x 36, Oxinium +0 head,one 6.5 mm screw Applied: drain(s) Estimated Blood Loss (mL): 250 Blood products transfused: none Patient admitted to the hospital for the above-mentioned procedure. Patient taken operating room underwent right total hip arthroplasty, posterior approach on December 26, 2021. Patient back in his room recovering well as in stable condition. Patient will follow posterior hip precautions. Weightbearing as tolerated. Discharge home today after physical therapy if safe for home environment. Status at Discharge Cognitive/behavioral status at discharge: at baseline, oriented Functional status at discharge: uses cane/walker Overall status at discharge: patient is progressing back to baseline Time Spent with Patient Time spent: Less than 30 minutes Exam Vital Signs (past 8 hours): - 12/27/21 02:50 12/27/21 07:46 12/27/21 08:31 Temperature 97.1 F L Pulse Rate 63 55 L 60 Respiratory Rate 12 18 Blood Pressure 137/78 137/78 Pulse Oximetry 94 95 Oxygen Delivery Method Room Air Oxygen Flow Rate 0 Narrative Exam Narrative: 56-year-old male resting comfortably in bed in no apparent distress. Skip dressing is on and functioning. Dressing is Clean, dry, intact.. Motor fun ctions intact bilateral lower extremities. Sensation grossly intact to light touch bilateral lower extremities. Const General: cooperative Orientation: alert HENMT Head: normal to inspection Resp Effort & Inspection: normal respiratory effort and able to speak in complete sentences Objective Labs Result Diagrams: 12/27/21 06:00 Labs: Laboratory Results - last 24 hr 12/27/21 06:00 Hgb 12.8 L Hct 37.6 L PFSH Medical History Acid reflux Asthma Bleeding ulcer (~1996) Bursitis of both knees Diabetes Easy bruisability Eczema Gout HTN (hypertension) Meningitis spinal (~1996) Osteoarthritis Psoriasis Sleep apnea Torn rotator cuff (01/2021) Surgical History H/O vasectomy History of arthroplasty of right knee (07/25/20) Hx of arthroscopy of left knee Hx of eye surgery (~2003) Hx of hand surgery (~2020) Hx of hernia repair Social History household members: spouse and children Smoking Status: Former smoker alcohol intake: current Discharge Assessment & Plan Assessment and Plan Assessment: Patient progressing as expected status post right total hip arthroplasty, po sterior approach Plan of Treatment: Mobilize with physical therapy, weight-bearing as tolerated, posterior hip precautions Multimodal pain management Discharge home today Discharge Plan Discharge Plan Patient Disposition: Home Discharge orders & Medications Discharge Orders: Discharge (Order); Ordered 12/27/21 Ordered By: Khanh Duran Prescriptions: New acetaminophen 325 mg Tablet 650 mg PO Q6HR Qty: 60 0RF polyethylene glycol 3350 17 gram Powder In Packet 17 gm PO DAILY PRN (Reason: Constipation) Qty: 10 0RF aspirin 81 mg Tablet,Delayed Release (Dr/Ec) 81 mg PO BID Qty: 60 0RF ibuprofen 400 mg Tablet 400 mg PO Q6HR Qty: 60 0RF oxycodone 10 mg Tablet 10 mg PO Q3HR PRN (Reason: Pain, Severe (7-10)) Qty: 40 0RF Continued metformin 500 mg Tablet 500 mg PO SEEINSTR 0RF Rx Instructions: 1000mg qam, 500mg bedtime fexofenadine 180 mg Tablet 180 mg PO DAILY 0RF montelukast 10 mg Tablet 10 mg PO DAILY 0RF lisinopril 5 mg Tablet 5 mg PO DAILY 0RF levalbuterol tartrate 45 mcg/actuation Hfa Aerosol Inhaler 2 puff INHALATION Q4-6H PRN (Reason: Asthma) 0RF Advair HFA 230-21 mcg/actuation Hfa Aerosol Inhaler 2 puff INHALATION BID PRN (Reason: Asthma flare) 0RF Novolin N NPH U-100 Insulin 100 unit/mL Suspension 40 unit SUBCUT BID 0RF diphenhydramine-acetaminophen [Acetaminophen PM] 25-500 mg Tablet 2 tab PO BEDTIME 0RF phentermine 15 mg Capsule 15 mg PO DAILY 0RF Rx Instructions: must administer 2 hours after breakfast pioglitazone 30 mg Tablet 30 mg PO DAILY 0RF Discontinued aspirin 81 mg Tablet,Delayed Release (Dr/Ec) 81 mg PO DAILY 0RF ibuprofen 200 mg Tablet 200 mg PO SEEINSTR 0RF Rx Instructions: 800mg qam, 400mg qpm Follow up/Referrals: Miscellaneous,DoctorMD [Primary Care Provider] - Cynthia Saucedo MD [Physician] - As previously scheduled (Follow up w/ Dr Saucedo on 01/10/2022 @ 11:00 at [facility] office in [place].) Diet/Activity/Treatments Diet: Diet as Tolerated Activity: Walk frequently with walker. Posterior hip precautions. Cold/Heat Therapy: Ice to hip as needed for pain. Skin/Wound/Dressing Care Report to your healthcare provider any signs of infection, such as:: chills, fever, night sweats, unusual drainage and unusual redness Dressing: May shower. Leave SKIP dressing in place until your follow up appointment. Call office if dressing becomes saturated inside. Once battery expires, you may disconnect and discard batter pack. No bathing or otherwise so aking incision. Visit Report/Discharge Packet Instructions: DI for Hip Replacement Stand Alone Forms: Surgery Discharge Discharge Data Primary Care Provider: Simona,Doctor Attending Provider: Cynthia Saucedo VTE Deep Vein Thrombosis/Pulmonary Embolism Present on Admission: No
--- NOTE | 2021-12-27 09:03 | CM.DANOTE ---
Patient is a 56 yo male who was admitted on 12/26/21 for RTHA. Pt has [employer] for insurance and his PCP is Adrián Miller. EMR was reviewed. Per Ortho MD, pt tolerated procedure well and stable for d/c home today with no identified barriers to discharge. Per PT, pt lives at home in [place] with spouse and kids and is independent with ADL's at baseline, does not use DME for ambulation, and works and drives. Recommending safe d/c home with brother assist and outpt PT. Pt plans to d/c to brother's house to stay as brother will be able to assist and be home 09/03 as spouse works and will help with the kids. Brother completed CG training with PT yesterday. Plan: Patient to d/c home to brother's house today via brother POV and assist and outpt PT. BRANDIE Ibrahim Discharge Planning/Care Management Pre-Anesthesia Assessment Start: 12/18/21 08:07 Freq: Status: Complete Protocol: Document 12/18/21 08:07 [facility] (Rec: 12/18/21 08:08 [facility] [id number]) Pre-Anesthesia Assessment Preferred Name Alex Patient Information Reviewed Via Phone Assessment Assessment Completed With Patient Diagnostic Results BMP/CMP,CBC,EKG,Urinalysis Comment Outside labs/ECG scanned, COVID screen @ 12/25/21 Primary Care Provider Fabiano Kinsey Seen Specialist in Last 12 Months Yes Specialist Seen Orthopedist Primary Language Khmer Preferred Language Khmer Pellet Post Inspector Required No Height 185.42 cm Weight 127.913 kg Body Mass Index (BMI) 37.2 Hearing Ability Normal Visual Assist Glasses Dentition Type Teeth, Natural Present Barriers to Learning None Other Aids No Hx Anesthesia Reactions No: Sleep apnea-Does not tolerate CPAP Hx Family Anesthesia Reaction No Hx Malignant Hyperthermia No Hx Blood Transfusions No Hx Blood Transfusion Reaction No Anesthesia Review Requested Yes: Surgeon requested re: Diabetes Head Turning Machine Operator No alcohol intake current alcohol intake frequency a few times a month Smoking Status Former smoker Tobacco type cigarettes,cigars how long ago did patient quit smoking Quit 1996, occasional cigar Substance Use Type does not use Pain Present Pain Reported Musculoskeletal Symptoms Abnormal Gait,Difficulty Walking,Joint Pain,Muscle Cramps History of Falling (Recent or History of Yes ) Patient is completely paralyzed or No completely immobile Mental Status Oriented to own ability Is patient on oxygen? No Does patient have FERNANDO/SOB No Hx Sleep Apnea Yes: Intolerant to CPAP CPAP/BIPAP use prescribed not used Currently Taking a Beta Martha No Can You Climb a Flight of Stairs Without Yes SOB Hx Chest Pain No Hx SOB No Hx Syncope or Dizziness No Anti-Coagulant Therapy No Has a Tank Car Loader No Cardiac Testing No Hx Pacemaker/ICD No Pacemaker Rep Required? No Cardiac Clearance Received Not Applicable Diet Type At Home Regular,Low Carb dysphagia No Gastrointestinal Symptoms Reflux Urinary Catheter Present No Hx Urinary Self Catheterization No Diabetes Yes: Checks blood sugar twice a day HgbA1C 6.4 Date 12/09/21 Hx Drug Resistant Organism No Presence of External or Internal Medical Yes: Right knee Devices Have you had any close contact with Yes: Covid positive 08/2021 someone diagnosed with COVID-19? Are you experiencing any of these No symptoms symptoms? Received a COVID vaccine? Yes Received all doses? Yes Marital Status Lives With spouse,children Prior Living Arrangements House Number of Floors (Floors) Two Floors Support System Spouse Does the Patient Have Assistance After Yes Surgery Patient Discharge Plan Description Return Home Comment Pt advised possible same day surgery length of stay per surgeon Feels Safe in Current Environment Yes Been Physically Hurt or Threatened By a No Person in Current Environment Do you have thoughts of harming yourself None or others? Are you currently considering suicide? No Do you have a plan to hurt yourself or No Plan others? Do You Have Any Spiritual Beliefs That No May Affect Your HC Choices? Do You Have Any Cultural Practices That No May Affect Your HC Choices? Who Can We Speak to About Patient's Care Family, friends Identifying Code for Release of Patient Declines to issue Information Health Care Proxy/Next of Kin Tracee () Health Care Proxy Emergency Contact Name Tracee () Emergency Contact Advance Directives? No Power of Automation Control Integrator No PAC Instructions Diabetes instructions,Durable medical equipment,Medications to take/avoid,Nasal antibiotic ,No ETOH/petroleum product on skin DOS,NPO,Post-op transportation,Pre-surgical wash,Sturdy shoes/comfortable clothes,Do not bring valuables and remove jewelry
--- NOTE | 2021-12-27 09:15 | PT-IP ANOTE ---
Check on pt at 9:15, pt refused therapy stating he is ready to d/c home and has no further needs. Able to recall precautions. Was cleared and completed caregiver training yesterday.
[2021-12-27] MEDS: OXYCODONE IR 10 MG TABLET PO (10:35)
--- NOTE | 2021-12-27 12:00 | PC.NURSE ---
Addendum entered by Chapin Castillo R.N. 12/27/21 12:15: Pt discharged @1146 on 12/27/2021 Original Note: DISCHARGE NOTE: IV line and wound drainage line removed. Dressings CDI, VSS, px reported 11/24, and demonstrates understanding of hip precautions with movement. Provided px medication per [facility] orders, in preparation for discharge travel. Pt was given printed and verbally provided discharge instructions regarding post-op hip surgery care, physician's orders, medication review, upcoming follow-up appointments, and information for stroke and SKIP device care. Pt. verbalized understanding and signed discharge form. Pt discharged at 1146 via wheelchair, accompanied by support person Kiko.
== END 2021-12-27 11:46 | disposition home or self-care (01) ==
LOC: OR 06:03 → AC 06:04
PROVIDERS: Referring Provider Orthopaedic Surgery; Visit Provider Orthopaedic Surgery
PROC: 0SR90JZ Replacement of Right Hip Joint with Synthetic Substitute, Open Approach (ICD-10-PCS; CPT 27130; principal; 2021-12-26 07:45)
DX: M16.11 Unilateral primary osteoarthritis, right hip (principal); M87.851 Other osteonecrosis, right femur; J45.909 Unspecified asthma, uncomplicated; I10 Essential (primary) hypertension; E11.9 Type 2 diabetes mellitus without complications; Z79.84 Long term (current) use of oral hypoglycemic drugs
CPT/HCPCS: 27130; 36415; 72170; 73502; 82962; 85014; 85018; 94640; 97161; 97530; C1776; C9290; J0171; J0690; J2250; J2405; J3010; J7613

== ENCOUNTER 2023-01-21 11:00 | Inpatient (IN) | payer OTHER, SELFPAY ==
[2021-12-26 11:58] VITALS: BMI 37.2
[2023-01-13 09:35] VITALS: BMI 41.3
[2023-01-21] VITALS (12 sets, daily range): BP systolic 117–168; BP diastolic 71–91; PULSE 70–86; RESP 13–19; TEMP 36.1–36.7; O2SAT 91–98; BMI 40.4
--- NOTE | 2023-01-21 | PATH_ITS ---
[facility] Accession Number: [id number] No. of containers..01 Tissue . 01 Material submitted: . bone - L4 - L5 EPIDURAL MASS . 01 Diagnosis: L4-L5 Epidural Lesion, Excision: Osteocartilaginous, tendinous and fibroconnective tissue with degenerative and reactive changes. MRV 01/29/2023 1611 Local . 01 Electronically signed: . Alessandra Watkins MD, Pathologist NPI- [id number] . 01 Gross description: . The specimen is received in formalin labeled with the patient's name, , and L4-L5 epidural mass consists of multiple jarrell soft tissue fragments admixed with hard, presumed osseous tissue aggregating to 2.9 x 2.1 x 0.6 cm. The specimen is filtered into biopsy bags and submitted entirely in cassettes A1-A2 following decalcification. ([id number]) /MRV 01/27/2023 1238 Local . 01 Pathologist provided ICD-10: M48.062 . 01 CPT . 778462, 187023 Specimen Comment: A courtesy copy of this report has been sent to [facility] Pathology Performed at: 01 [facility] [address] [place] [address] [address], [place], [place] [id number] MD Flo Anne MD Phone: [phone]
[2023-01-21] MEDS: LACTATED RINGERS 1,000 ML 42 ML IV ×2 (11:43→14:28)
--- NOTE | 2023-01-21 11:44 | PM.PREOP ---
Pre-operative Note COVID-19 Criteria for continued procedure: Expected advancement of disease process, Possibility delay results in more complex future surgery or treatment, Increased loss of function, Continuing or worsening of significant or severe pain, Deterioration of the patient's condition or overall health and Delay expected to result in less-positive ultimate med/surg outcome Interval Note History & Physical reviewed/Exam performed by Physician: Yes Changes to H&P: No
[2023-01-21] MEDS: CEFAZOLIN VIAL 1 GM in SODIUM CHLORIDE 0.9% 100 ML IV (12:00)
--- NOTE | 2023-01-21 12:26 | SUR.PREOP ---
Dr. Edward notified of skin abrasions. evaluated patient. He reported the patient will be receiving antibiotics.
[2023-01-21] MEDS: CEFAZOLIN 2 GM/100 ML PREMIX 100 ML IV ×2 (12:50→20:38)
--- NOTE | 2023-01-21 13:16 | SUR.OPER ---
Prone on spine table, head in foam head support, padded chest and pelvic supports, gel pad at knees, lower legs supported by pillows; nipples, genitalia and toes free of pressure, arms secured on foam padded arm boards at <90 degrees abduction. Tape over blanket at thigh and lower leg secured to table.
--- NOTE | 2023-01-21 14:02 | SUR.OPER ---
pt states pain localized to lower back and down left leg to ankle. Denies numbness, tingling and weakness in lower body. States preop both hands suffer from numbness after injury on ladder last summer
[2023-01-21] MEDS: BUPIVACAINE LIPOSOME 266 MG/20 ML VIAL INJ (15:48)
[2023-01-21] MEDS: BUPIVACAINE 0.25% (PF) 30 ML, EPINEPHrine 0.15 MG INJ (15:48)
--- NOTE | 2023-01-21 16:34 | DI.RAD.S_ITS ---
PROCEDURE: XR LUMBAR SPINE 2-3V INDICATIONS: L4-5, L5-S1 TLIF TECHNIQUE: 2 views of the lumbar spine were acquired. COMPARISON: None. FINDINGS: Fluoroscopic guidance utilized for an L4 through S1 posterior and interbody surgical fusion. No hardware complication IMPRESSION: Fluoroscopic guidance. Dictated by: Rivera Scott M.D. on 01/21/2023 at 16:41 Approved by: Rivera Scott M.D. on 01/21/2023 at 16:42
--- NOTE | 2023-01-21 16:44 | P.OP_ITS ---
Operative Date/Time/Diagnoses Date of procedure: 01/21/23 Time of procedure: 13:00 Pre-op diagnosis: 1. L4-5, L5-S1 spinal stenosis 2. 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 L4-5, L5-S1 spondylosis with radiculopathy Post-op diagnosis: same Procedure & Clinicians Procedure: 1. L4-5, L5-S1 Postero-lateral and posterior interbody fusion 2. L4-5, L5-S1 interbody cage placement. 3. L4-5, L5-S1 decompressive laminectomy with bilateral facetecomies 4. L4-5, L5-S1 Posterior segmental instrumentation 5. [place] of bone marrow from iliac crest 6. Utilization of microsurgical technique and operating microscope 7. Utilization of robotic assisted navigation Same procedure as scheduled: Yes Indications: Patient has been having chronic back pain and worsening lumbar radiculopathy and symptoms of neurogenic claudication. Patient failed multiple conservative management with worsening pain weakness and numbness in his lower extremity. Patient has been having difficulty performing activity of daily living. After discussing risks benefits of treatment options, patient elected proceed with surgery. Surgeon: Eligio Edward Attorney Law Clerk: Magdalena Mccord Click Yes if Unassisted: No Anesthesia Type: General Operative Notes Closure Type: primary Specimen(s): other (L4-5 epidural mass/cyst) Prosthetic devices, grafts, tissues, transplants, or devices: Globus CREO MIS screws, Rise cages Applied: catheter Estimated Blood Loss (mL): 100 Blood products transfused: none Procedure in detail: Patient was seen in the preoperative area. Risks and benefits of the surgery was discussed with the patient. Informed consent was obtained from the patient and placed in the chart. Surgical site was marked. Patient was taken to the operative room. General anesthesia was administered. Prophylactic antibiotic was given to the patient less than 30 min before the incision was made. Patient was placed into a prone position on the Dario table. Patient's back was then prepped and draped in the sterile fashion. Time-out was performed at this time. After patient was prepped and draped, patient's PSIS was palpated and marked bilaterally. Small 1 cm incision was made over the PSIS for placement of the reference probes. Two trocar was placed into the PSIS 1 on each side. The reference probe was attached to the trocar of the reference apparatus. At this time the C-arm imaging was used to confirm AP and lateral of L4-L5, L5- S1 vertebrae and merged the C-arm imaging using the [employer] robotic navigation system with the CT of the lumbar spine. After successful merging was completed and confirmed, skin marker was used to mandeep out the skin incision using the [employer] robotic arm. Bilateral incision was made at this time. Pre templated trajectory was used and guided using the [employer] robotic navigation system for bilateral L4, L5, S1 pedicle screw placement. This was done by using the robotic arm to guide the high-speed bur to make a cortical entry point. Next a drill was placed also using the robotic arm and guided using the navigation system drilling partially through bilateral L4, L5 and S1 pedicles. Next L4, L5, S1 pedicle screws it was pre templated and measured was placed onto the power company truck driver and inserted into the pedicles bilaterally. After all 6 screws were placed C-arm imaging was taken of both AP and lateral to confirm the placement. Excellent placement of the screws were confirmed and a matched precisely with the pre planned screw placement using the navigation system. MARs retractor was inserted using [employer] guidence. Globus MARS retractors was placed inside the incision and docked onto the L4 and L5 lamina. Using microsurgical technique and operating microscope, a L4, L5 laminectomy and L4-5, L5-S1 facetectomy was performed using a Kerrison rongeur. The laminectomy and facetectomy was performed in order to decompress patient's cauda equina as well as the nerve roots exiting at the L4-5, L5-S1 level. Patient was found have severe lateral recess and neural foramen stenosis which was fully decompressed after the laminectomy facetectomy. More than 75% of the facets were removed during the process of decompression rendering L4-5, L5-S1 level grossly unstable and required a fusion procedure at the same time. The disc space at L4-5, L5-S1 was identified, and a total diskectomy was performed at L4-5, L5-S1 level. The endplates were decorticated using a rasp and shaver. The total diskectomy and decortication was performed at L4-5, L5-S1 level in order to to accomplish a L4- 5, L5-S1 fusion. The local bone from the laminectomy and facetectomy was saved for local bone grafting. After the total diskectomy and decortication was completed, Trifecta bone graft material was combined with local bone that was harvested earlier. During process of performing the L4 laminectomy and left-sided facetectomy at L4-5, there is a significant epidural mass that was encountered. This mass was causing significant compression on the thecal sac as well as the left-sided exiting nerve root at L4-5 level. And the mass was blended together along with the ligamentum flavum along with the dura of the thecal sac. Parts of the cystic content was sent off for pathology. Parts of the cystic structure was intimately connected to the dura. Partial excision of the cyst was performed during the process of laminectomy facetectomy and decompression. A small dural defect was identified after partial cyst excision was performed. DuraGen and Tisseel was used to patch the dural defect. No CSF leakage was identified. At this time, a separate skin is incision was made over the iliac crest. A Jamshidi needle was inserted into the iliac crest through a separate skin incision. 5 cc of bone marrow aspiration was obtained through the separate skin incision using a Jamshidi needle from the iliac crest. The bone marrow aspiration was combined with local bone and the Trifecta bone grafting material. The bone grafting material was placed into the L4-5, L5-S1 interbody space along with a expandable cage. The cage was expanded to its maximum height using the torque limiting screwdriver. The disc preparation as well as the cage insertion were also performed under navigation guidance. After the cage was placed, AP and lateral C-arm imaging was taken to confirm placement of the cage and excellent position was confirmed. Globus MARS retractor was inserted and docked onto the L4-5, L5-S1 posterolateral gutter on the right side. Using the power drill, posterior- lateral decortication was performed at L4-5, L5-S1 level until bleeding cortical bone was identified. The remaining bone grafting material was placed into the L4-5, L5-S1 posterior lateral gutter he order to accomplish posterolateral fusion at the L4-5, L5-S1 level. At this time the tulips were attached to the L4, L5, S1 pedicle screw shanks. After measuring the length of the rods, they were inserted into the tulips of the pedicle screws and locked in place using locking caps and torque limiting screwdriver bilaterally. Total 6 caps and 2 titanium rods was used in order to complete the posterior instrumentation construct. After all the hardware was placed, and confirmed with AP and lateral C-arm imaging, the wound was then irrigated with sterile normal saline and packed with Ray-Christian gauze for 3 min to accomplish hemostasis. After the gauze was removed the deep fascia was closed with #1 Vicryl suture. The subcutaneous layer was closed with 2-0 Vicryl. The skin was closed with skin charmaine. Patient tolerated the procedure well. There were no complications. Neuro monitoring system was used to monitor patient's neurologic status throughout entire procedure. There was no disturbance of the neural monitoring signals throughout the case. The Operation could not have been safely performed without compromising the technical result or length of the procedure, without the assistance of a skilled surgical coder. The surgical coder was medically necessary for proper positioning, retraction and manipulation of instruments, proper exposure, surgical preparation, and manipulation of tissue. Complications: none Post-operative Condition: stable Disposition: PACU Plan for aftercare: Admit inpatient hospital
[2023-01-21] MEDS: LACTATED RINGERS 1,000 ML 125 ML IV (20:26)
[2023-01-21] MEDS: ACETAMINOPHEN 325 MG TABLET 650 MG PO (20:37)
[2023-01-21] MEDS: DOCUSATE 100 MG CAPSULE PO (21:21)
[2023-01-21] MEDS: METFORMIN HCL 500 MG TABLET 1000 MG PO (21:21)
[2023-01-21] MEDS: diphenhydrAMINE 25 MG TABLET 50 MG PO (21:21)
[2023-01-21] MEDS: SENNOSIDES 8.6 MG TABLET 17.2 MG PO (21:22)
[2023-01-22] MEDS: hydrOXYzine pamoate 25 MG CAPSULE PO ×2 (03:12→10:04)
[2023-01-22] MEDS: ACETAMINOPHEN 325 MG TABLET 650 MG PO ×4 (03:12→21:35)
[2023-01-22 03:24] VITALS: BP 144/75; PULSE 68; RESP 19; TEMP 36.6; O2SAT 97
--- NOTE | 2023-01-22 03:41 | PC.NURSE ---
Requested med. for spasms, 25 mg. Vistaril PO & Tylenol 650 mg. PO admin. 2 liters 97-98%, turned off oxygen 94% in room air. Will monitor & continue plan of care.
[2023-01-22] MEDS: LACTATED RINGERS 1,000 ML 125 ML IV (04:12)
[2023-01-22] MEDS: CEFAZOLIN 2 GM/100 ML PREMIX 100 ML IV (04:27)
[2023-01-22 05:57] LABS: Hematocrit 37.6 % (41-53); Hemoglobin 13.1 g/dL (13.5-17.5)
--- NOTE | 2023-01-22 06:45 | PC.NURSE ---
Denies pain @ this time & declined pain medication. Will monitor.
--- NOTE | 2023-01-22 07:34 | PM.PNPO.1 ---
Subjective Subjective Date Patient Seen: 01/22/23 Time Patient Seen: 07:34 Interval history: Pain is mild. Denies fever or chills. No nausea vomiting. No headache. Exam Vital Signs (past 8 hours): - 01/22/23 03:24 Temperature 97.9 F Pulse Rate 68 Respiratory Rate 19 Blood Pressure 144/75 H Pulse Oximetry 97 Oxygen Flow Rate 2 Oxygen Delivery Method Room Air Oxygen Flow Rate 2 Narrative Exam Narrative: 57-year-old male resting comfortably in bed in no apparent distress. Motor functions intact bilateral lower extremities. Sensation grossly intact to light touch bilateral lower extremities. Const General: cooperative and comfortable Nutritional Appearance: well nourished Orientation: alert Resp Effort & Inspection: normal respiratory effort and able to speak in complete sentences Objective Labs 01/22/23 04:58 Labs: Laboratory Results - last 24 hr 01/22/23 04:58 Hgb 13.1 L Hct 37.6 L PFSH Medical History Acid reflux Asthma Bleeding ulcer (~1996) Bursitis of both knees Diabetes Easy bruisability Eczema Gout History of COVID-19 (08/2021) HTN (hypertension) Meningitis spinal (~1996) Osteoarthritis Psoriasis Sleep apnea Torn rotator cuff (01/2021) Surgical History H/O vasectomy History of arthroplasty of right knee (07/25/20) 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 posterior instrumentation-Robot Eligio Edward MD Postoperative day: 1 Postoperative status: doing well Postoperative status narrative: Progressing as expected status post L4-L5, L5-S1 fusion Dural tear with no CSF leakage identified Postoperative plan: routine post-op care Postoperative plan narrative: Patient currently lying in bed with head of bed elevated 30?. Patient has been like that for a couple hours now and has had no headache. We will continue to elevate the head of bed over next couple hours if no return of headache he can be out of bed and mobilize with physical therapy. Patient will need to limit his bending, twisting, lifting Multimodal pain management Plan on discontinuing Armas catheter once patient is able to mobilize with physical therapy Disposition likely home tomorrow Quality VTE Deep Vein Thrombosis/Pulmonary Embolism Present on Admission: No
[2023-01-22 08:00] VITALS: BP 168/82; PULSE 81; RESP 18; TEMP 36.6; O2SAT 95
[2023-01-22] MEDS: INSULIN NPH 100 UNIT/ML 10ML VIAL 40 UNIT SUBCUT ×2 (08:35→21:36)
[2023-01-22] MEDS: MONTELUKAST 10 MG TABLET PO (08:38)
[2023-01-22 08:39] VITALS: BP 168/82; PULSE 81
[2023-01-22] MEDS: LORATADINE 10 MG TABLET PO (08:39)
[2023-01-22] MEDS: METFORMIN HCL 500 MG TABLET 1000 MG PO ×2 (08:39→19:50)
[2023-01-22] MEDS: lisinopriL 20 MG TABLET 40 MG PO (08:39)
--- NOTE | 2023-01-22 10:20 | PT.IIE ---
Current Diagnoses Spinal stenosis, lumbar region with neurogenic claudication (01/21/23) Other bursal cyst, other site (01/21/23) Surgery Performed Operation Date: 01/21/23 12:45 Actual Procedures p L4-5, L5-S1 TLIF w. 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) Hx of arthroscopy of left knee Hx of eye surgery (~2003) Hx of hand surgery (~2020) Hx of hernia repair Hx of shoulder surgery (~02/2022) Medical History (Last Reviewed 01/22/23 @ 07:35 by Khanh Duran PA-C) Acid reflux Asthma Bleeding ulcer (~1996) Bursitis of both knees Diabetes Easy bruisability Eczema Gout History of COVID-19 (08/2021) HTN (hypertension) Meningitis spinal (~1996) Osteoarthritis Psoriasis Sleep apnea Torn rotator cuff (01/2021) Physical Therapy Inpatient Evaluation/Re-Eval M1 PT/OT-IP Prior Functional Status Start: 01/22/23 12:49 Freq: NEEDED Status: Active Protocol: Document 01/22/23 10:20 AB (Rec: 01/22/23 13:00 AB [email or web address]) Medical Review Prior Functional Status Medical History Reviewed Yes Communication able to make needs known Mobility and Gait pt stated that he is independent with all mobilities and ambulation without AD Social History Household Members spouse,children Living Arrangements House Number of Floors (Floors) Two Floors Number of Stairs To Enter/Railing? pt stays on the main level of the house Has 4 steps with wide bilateral rails to enter and can only hold on to one a time Home Environment High Toilet,Tub/Shower Home Equipment Front Wheel Walker,Straight Cane Additional Social History Comment pt has a safety toilet frame pt also has an adjustable bed M2 PT-IP Current Condition Start: 01/22/23 12:49 Freq: NEEDED Status: Active Protocol: Document 01/22/23 10:20 AB (Rec: 01/22/23 13:00 AB [email or web address]) Physical Therapy Current Condition Current Condition Evaluation Date 01/22/23 Treatment Diagnosis s/p L4-5, L5S1 TLIF; difficulty in walking Onset Date 01/21/23 M3 PT-IP Subjective Start: 01/22/23 12:49 Freq: NEEDED Status: Active Protocol: Document 01/22/23 10:20 AB (Rec: 01/22/23 13:00 [email or web address]) Subjective Physical Therapy Visit Type Type Initial Evaluation Visit Start Time 10:20 Visit Stop Time 10:50 Total Visit Minutes 30 Notes Pt with dural tear s/p TLIF; per charge nurse, pt has been up with them and no c/o headache Number of CHIEF EXECUTIVE OR MANAGING DIRECTOR Visits 0 Physical Therapy Visit Comments Patient Comments agreeable to do PT Therapy Pain Assessment Pain When Pain Assessed At Rest Pain Present Pain Present Pain Reported Location Back Intensity 2 Scale Used Numeric (0 - 10) Pain Management Techniques Apply Cold,Modification of Treatment,Re-positioning, Timing of Activity with Medications M4 PT-IP Mobility and Gait Start: 01/22/23 12:49 Freq: NEEDED Status: Active Protocol: Document 01/22/23 10:20 AB (Rec: 01/22/23 13:00 [email or web address]) PT-Bed Mobility Assessment Rolling Type of Rolling Log Rolling Level of Assist Standby Assistance Supine to Sit Supine to Sit Standby Assistance PT-Transfer Assessment Sit to and From Stand Sit to and from Stand Minimal Assistance,1 Person Assistance,Use of Upper Extremities Equipment Transfer Assistive Device Gait Belt,Front Wheeled Walker Orthotic/Prosthetic Devices or Brace: No Transfers Transfer Destination Chair Transfer Technique ambulated Transfer Ability Level of Assist Contact Guard Assistance, Minimal Assistance Comments Mobility Comments pt supine in bed with HOB elevated to ~ 25 deg. pt without c/o headache. BP monitored. educated on back precautions and log roll bed mobility. BP in supine: 135/58. completed log roll supine to sit SBA max cues for techniques. pt able to sit on EOB with initial slight dizziness but dissipated after a few seconds . BP in sittin/59. completed sit to stand min A and ambulated in room using FWW CGA to min A ~ 40 ft. pt agreed to sit on the chair. positioned on the chair. call light and table placed within reach. BP in sitting after ambulation: 123/60. pt without c/o dizziness/lightheadedness . Gait Assessment Gait Gait Assistance Required: Contact Guard Assist,Minimum Assistance Distance (Feet) 40 Able to Maintain Weight Bearing Status Yes During Gait Assistive Devices Assistive Device Gait Belt,Front Wheeled Walker Orthotic/Prosthetic Devices or Brace: No Gait Deviations General Gait Pattern Decreased Stride Length, Decreased Feet Clearance Factors Limiting Gait Function Factors Limiting Gait Function Decreased Activity Tolerance, Decreased Strength,Limited Range of Motion,Pain,Poor Balance PT-Balance Assessment Sitting Balance and Reactions Static Sitting Balance Ability Normal Dynamic Sitting Balance Ability Good Standing Balance and Reactions Static Standing Balance Ability Fair Dynamic Standing Balance Ability Fair Device Used FWW M5 PT-IP Objective Assessments Start: 01/22/23 12:49 Freq: NEEDED Status: Active Protocol: Document 01/22/23 10:20 AB (Rec: 01/22/23 13:00 AB [id number]) Orientation Orientation/Cognition Level of Alertness Alert Orientation Name,Place,Situation Language Function Ability No Deficits Noted Safety Awareness Understands Safety Issues Memory Description No Deficits Noted Gross Range of Motion Lower Extremity ROM Assessment Within Functional Limits Strength Lower Extremity Strength Assessment Within Functional Limits Coordination Assessment Gross Coordination Gross Coordination WNL Sensation Assessment Sensation Gross Sensation WNL Muscle Tone Muscle Tone WNL Yes M6 PT-IP Treatment Start: 01/22/23 12:49 Freq: NEEDED Status: Active Protocol: Document 01/22/23 10:20 AB (Rec: 01/22/23 13:00 AB [email or web address]) Physical Therapy Treatment Education Education Provided Precautions,Weight Bearing Status,Post-Op Packet,Safety M7 PT-IP Assessment and Plan Start: 01/22/23 12:49 Freq: NEEDED Status: Active Protocol: Document 01/22/23 10:20 AB (Rec: 01/22/23 13:00 AB [email or web address]) PT Summary Assessment and Plan Potential Rehabilitation Potential Good Status of Condition at Evaluation Stable Summary Impairments Pain,ROM,Strength,Balance, Cognition,Bed Mobility, Transfers,Gait,Activity Tolerance Assessment Summary Pt s/p L4-5, L5S1 TLIF. pt had a dural tear during sx but without c/o headache during PT session. pt requiring CGA to min A for transfers and ambulation using FWW. pt plans to go home and spouse to assist him. will conduct caregiver training and stair climbing training prior to d/c . Goals Bed Mobility Goal Independent Transfer Goal Independent,Front Wheeled Walker Gait Goal Independent,Front Wheel Walker Gait Distance 250 Other Goals up/down 4 steps 1 rail mod I Days to Meet Goals 5 Frequency of Treatment Frequency Of Treatment Twice a Day Treatment Plan Physical Therapy Treatment Plan Bed Mobility Training,Transfer Training,Gait Training, Therapeutic Exercise,Balance Retraining,Post Op Education, Discharge Planning,Hot or Cold Pack,Neuromuscular Re-ed, Coordination Retraining,Manual Therapy Precautions Lumbar Precautions Log Roll,No Twisting,Limit Bending,Lifting Restriction of 10 lbs,Gait Belt above Incisional Area Recommendations To Nursing Amount of Assist Needed 1 Person Assist Discharge Recommendations PT Discharge Recommendations Home with Assistance Transportation Needs at Discharge Private Vehicle
--- NOTE | 2023-01-22 12:03 | OT.IP.EVAL ---
Current Diagnoses Spinal stenosis, lumbar region with neurogenic claudication (01/21/23) Other bursal cyst, other site (01/21/23) Surgery Performed Operation Date: 01/21/23 12:45 Actual Procedures p L4-5, L5-S1 TLIF w. 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) Hx of arthroscopy of left knee Hx of eye surgery (~2003) Hx of hand surgery (~2020) Hx of hernia repair Hx of shoulder surgery (~02/2022) Occupational Therapy Inpatient Evaluation/Re-Eval M2 OT-IP Current Condition Start: 01/22/23 12:30 Freq: Status: Active Protocol: Document 01/22/23 11:15 [facility] (Rec: 01/22/23 12:56 [facility] [id number]) Occupational Therapy Current Condition Current Condition Evaluation Date 01/22/23 Treatment Diagnosis S/p L4-5, L5-S1 TLIF Diagnosis Onset Date 01/21/23 Post Operative Precautions Lumbar Precautions Log Roll,No Twisting,Limit Bending,Lifting Restriction of 10 lbs,Gait Belt above Incisional Area M3 OT- IP Subjective and Pain Start: 01/22/23 12:30 Freq: Status: Active Protocol: Document 01/22/23 11:15 [facility] (Rec: 01/22/23 12:56 [facility] [id number]) OT- Subjective Occupational Therapy Visit Type Type Initial Evaluation Visit Start Time 11:15 Visit Stop Time 11:51 Total Visit Minutes 36 Occupational Therapy Visit Comments Patient Comments Pt agreed to do oral care needs , pt's in the room. Patient/Caregiver Goals To go home. OT Pain Assessment Pain When Pain Assessed At Rest Pain Present Pain Present Pain Reported Location Right Knee Intensity 2 Scale Used Numeric (0 - 10) M4 OT- IP ADL's Start: 01/22/23 12:30 Freq: Status: Active Protocol: Document 01/22/23 11:15 [facility] (Rec: 01/22/23 12:56 [facility] [id number]) OT [id number]-[id number]-[id number] General Evaluation Self-Feeding Ability Independent OT ADL-Grooming General Evaluation Grooming Ability Independent OT ADL-Oral Care General Eval Oral Care Ability Independent OT ADL-Dressing General Eval Lower Body Dressing Ability Standby Assistance,Maximum Assistance Comments OT Dressing Comments Pt able to practice use of sock aid and printing specialist for LB dressing needs. OT ADL-Toileting Comments OT Toileting Comments Pt able to simulate to reach to wipe while seated and also educated him of another option to stand and wipe if needed. OT ADL-Bathing Comments OT Bathing Comments Not performed, but considering to shower tomorrow for OT session if still here. M5 OT- IP IADL's Start: 01/22/23 12:30 Freq: Status: Active Protocol: Document 01/22/23 11:15 [facility] (Rec: 01/22/23 12:56 [facility] [id number]) OT-Instrumental Activities of Daily Living Home Safety Awareness Awareness of Need for Assistance at Home Good Awareness Ability to Problem Solve Emergency Able to Problem Solve Situations Home Safety Comments Pt has a supportive to assist with his needs as needed. M6 OT- IP Functional Cognition Start: 01/22/23 12:30 Freq: Status: Active Protocol: Document 01/22/23 11:15 [facility] (Rec: 01/22/23 12:56 [facility] [id number]) Cognitive Factors Limiting Selfcare Function Cognitive Ability Level of Alertness Alert Patient Orientation Name,Age,Birthday,Month,Date, Year,Day of Week,Place, Situation Attention Span Ability Capable of Focused Attention, Capable of Sustained Attention Ability to Follow Commands Able to Follow Multi-Step Commands Cognitive Comments Cognitive Assessment Comments Pt is intact and able to safety follow his back precautions during ADL and mobility needs. OT- Vision and Hearing OT- Hearing Assessment OT- Hearing Assessment WFL OT- Vision Assessment Visual Acuity Glasses All The Time M7 OT- IP Mobility and Balance Start: 01/22/23 12:30 Freq: Status: Active Protocol: Document 01/22/23 11:15 [facility] (Rec: 01/22/23 12:56 [facility] [id number]) OT-Transfer Assessment Sit to and From Stand Sit to and from Stand Standby Assistance,Contact Guard Assistance Transfers Transfer Ability Standby Assistance Technique Transfer Destination Chair Devices Transfer Assistive Devices Gait Belt,Front Wheeled Walker Comments Mobility Comments CGA to stand and close SBA with FWW in the room. OT- Balance Assessment Sitting Balance and Reactions Static Sitting Balance Ability Normal Dynamic Sitting Balance Ability Good Standing Balance and Reactions Static Standing Balance Ability Good Dynamic Standing Balance Ability Fair M8 OT- IP Objective Assessments Start: 01/22/23 12:30 Freq: Status: Active Protocol: Document 01/22/23 11:15 [facility] (Rec: 01/22/23 12:56 [facility] [id number]) OT-Muscle Tone Assessment Muscle Tone WNL Yes M9 OT- IP Assessment and Plan Start: 01/22/23 12:30 Freq: Status: Active Protocol: Document 01/22/23 11:15 [facility] (Rec: 01/22/23 12:56 [facility] [id number]) OT Summary Assessment and Plan Potential Rehabilitation Potential Excellent Analytic Complexity at Evaluation Low Summary OT Impairments Pain,Functional Mobility, Dressing,Toileting,Bathing, Toilet Transfers,Shower Transfers Progress Towards Goals Progressing Toward Goals Assessment Summary Pt low complexity and main barrier is pain, steps, and will need to use LB dressing equipment or have assist for LB dressing needs. Pt has a supportive to assist pt at home. Pt to go home when medically stable. Goals Dressing Goal Independent Toileting Goal Independent Bathing Goal Independent Toilet Transfer Goal Independent Shower Transfer Goal Independent Days to Meet Goals 5 Frequency of Treatment Frequency Of Treatment Once a Day Treatment Plan OT Treatment Plan ADL Training,Functional Mobility,Patient/Family Education,Discharge Planning Other Treatment Recommendations and Next shower /caregiver training Treatment Focus Discharge Recommendations OT Discharge Recommendations Home with Assistance Transportation Needs at Discharge Private Vehicle
--- NOTE | 2023-01-22 14:20 | PT.IPTN ---
Current Diagnoses Spinal stenosis, lumbar region with neurogenic claudication (01/21/23) Other bursal cyst, other site (01/21/23) Surgery Performed Operation Date: 01/21/23 12:45 Actual Procedures p L4-5, L5-S1 TLIF w. posterior instrumentation-Robot - Eligio Edward MD Physical Therapy Treatment Note M2 PT-IP Current Condition Start: 01/22/23 12:49 Freq: NEEDED Status: Active Protocol: Document 01/22/23 10:20 [facility] (Rec: 01/22/23 13:00 AB [id number]) Physical Therapy Current Condition Current Condition Evaluation Date 01/22/23 Treatment Diagnosis s/p L4-5, L5S1 TLIF; difficulty in walking Onset Date 01/21/23 M3 PT-IP Subjective Start: 01/22/23 12:49 Freq: NEEDED Status: Active Protocol: Document 01/22/23 14:20 [facility] (Rec: 01/22/23 15:06 AB [id number]) Subjective Physical Therapy Visit Type Type Treatment Note Visit Start Time 14:20 Visit Stop Time 14:45 Total Visit Minutes 25 Number of GARDE MANGER Visits 0 Physical Therapy Visit Comments Patient Comments agreeable to do PT Therapy Pain Assessment Pain When Pain Assessed At Rest Pain Present Pain Present Pain Reported Location Back Intensity 2 Scale Used Numeric (0 - 10) Pain Management Techniques Modification of Treatment,Re- positioning,Timing of Activity with Medications M4 PT-IP Mobility and Gait Start: 01/22/23 12:49 Freq: NEEDED Status: Active Protocol: Document 01/22/23 14:20 [facility] (Rec: 01/22/23 15:06 AB [id number]) PT-Bed Mobility Assessment Rolling Level of Assist Standby Assistance Supine to Sit Supine to Sit Standby Assistance Sit to Supine Sit to Supine Standby Assistance PT-Transfer Assessment Sit to and From Stand Sit to and from Stand Contact Guard Assistance,1 Person Assistance,Use of Upper Extremities Equipment Transfer Assistive Device Gait Belt,Front Wheeled Walker Orthotic/Prosthetic Devices or Brace: No Comments Mobility Comments caregiver training conducted. reviewed pt's back precautions and log roll bed mobility. pt completed log roll supine<> sit SBA. educated spouse on how to use safety belt and how to assist pt. spouse was able to put safety belt on pt and assisted pt with sit to stand CGA. pt able to ambulate towards the stairs ~ 125 ft using FWW with spouse assisting CGA. completed up/down stairs holding on to L rail with B hands and pt doing side stepping CGA. repeated x 2 sets. pt ambulated back to his room using fWW CGA and requested to go back to bed. able to do log roll sit to supine SBA. positioned pt in bed. call light and table placed within reach. pt and spouse without further concerns. Gait Assessment Gait Gait Assistance Required: Contact Guard Assist Distance (Feet) 125 Able to Maintain Weight Bearing Status Yes During Gait Assistive Devices Assistive Device Gait Belt,Front Wheeled Walker Orthotic/Prosthetic Devices or Brace: No Factors Limiting Gait Function Factors Limiting Gait Function Decreased Activity Tolerance, Limited Range of Motion,Pain, Poor Balance Stair Climbing Assessment Evaluation Level of Assist On Stairs Contact Guard Assistance Devices Stair Climbing Assistive Devices Left Railing Technique/Endurance Stair Climbing Direction Ascend and Descend Stair Climbing Technique Step to Step Number of Steps Climbed 3 Stair Climbing Set # Repetitions (reps) 2 M5 PT-IP Objective Assessments Start: 01/22/23 12:49 Freq: NEEDED Status: Active Protocol: Document 01/22/23 10:20 [facility] (Rec: 01/22/23 13:00 AB [id number]) Orientation Orientation/Cognition Level of Alertness Alert Orientation Name,Place,Situation Language Function Ability No Deficits Noted Safety Awareness Understands Safety Issues Memory Description No Deficits Noted Gross Range of Motion Lower Extremity ROM Assessment Within Functional Limits Strength Lower Extremity Strength Assessment Within Functional Limits Coordination Assessment Gross Coordination Gross Coordination WNL Sensation Assessment Sensation Gross Sensation WNL Muscle Tone Muscle Tone WNL Yes M6 PT-IP Treatment Start: 01/22/23 12:49 Freq: NEEDED Status: Active Protocol: Document 01/22/23 14:20 [facility] (Rec: 01/22/23 15:06 AB [id number]) Physical Therapy Treatment Education Education Provided Precautions,Safety M7 PT-IP Assessment and Plan Start: 01/22/23 12:49 Freq: NEEDED Status: Active Protocol: Document 01/22/23 14:20 [facility] (Rec: 01/22/23 15:06 AB [id number]) PT Summary Assessment and Plan Potential Rehabilitation Potential Good Summary Impairments Pain,ROM,Strength,Balance, Cognition,Bed Mobility, Transfers,Gait,Activity Tolerance Progress Towards Goals Progressing Toward Goals Assessment Summary caregiver training conducted and spouse was able to safely assist pt with bed mobility, transfers, ambulation and stair climbing. pt may go home when medically stable. Goals Bed Mobility Goal Independent Transfer Goal Independent,Front Wheeled Walker Gait Goal Independent,Front Wheel Walker Gait Distance 250 Other Goals up/down 4 steps 1 rail mod I Days to Meet Goals 5 Frequency of Treatment Frequency Of Treatment Twice a Day Treatment Plan Physical Therapy Treatment Plan Bed Mobility Training,Transfer Training,Gait Training, Therapeutic Exercise,Balance Retraining,Post Op Education, Discharge Planning,Hot or Cold Pack,Neuromuscular Re-ed, Coordination Retraining,Manual Therapy Precautions Lumbar Precautions Log Roll,No Twisting,Limit Bending,Lifting Restriction of 10 lbs,Gait Belt above Incisional Area Recommendations To Nursing Amount of Assist Needed 1 Person Assist Discharge Recommendations PT Discharge Recommendations Home with Assistance Transportation Needs at Discharge Private Vehicle
--- NOTE | 2023-01-22 15:11 | PC.NURSE ---
Pt requested that Armas cath be removed since he was getting up well with PT.
--- NOTE | 2023-01-22 15:39 | CM.DANOTE ---
Patient is a 57 yo male who was admitted on 01/21/23 for TLIF. Pt has [employer] for insurance and his PCP is Marybeth Zelaya. EMR was reviewed. Per Ortho PA, pt tolerated procedure well and to work with PT/OT today for possible discharge home tomorrow Thu. Per PT/OT, recommend safe d/c home with spouse assist when medically stable. SW met bedside with pt and explained role and he confirms he lives in [place] [place] with his spouse and older teen kids and is active and independent at baseline. Pt works at [employer] and does not use DME for ambulation. Pt states he has had knee surgery, shoulder surgery, hand surgery etc in the past few years and feels that he and spouse are capable of managing at home and spouse took time off work to assist. Spouse plans to provide transport at d/c and pt denies any hx of HH or SNF but has used outpt PT before. Plan: SW to follow for further PT/OT to confirm safe d/c home with spouse assist and any further identified discharge planning needs. BRANDIE Ibrahim Discharge Planning/Care Management CM Discharge Assessment Start: 01/22/23 15:38 Freq: Status: Active Protocol: Document 01/22/23 15:38 BF (Rec: 01/22/23 15:39 BF [id number]) Discharge Planning Assessment Assigned Extension Forester BRANDIE Bustillos DPOA/Assigned Designee Name Spouse Tracee Advance Directives? No Advance Directives on File No History Provided By Patient,Medical Record Has Patient been admitted in last 30 No days? Prior Living Arrangements House Household Members spouse,children Type of transporation used prior to Drives own vehicle admit Independent with ADL's Yes Is patient alert and oriented? Yes Caregiver for Another No: older kids at home DME Already Rented / Owned Elevated Toilet Seat Patient/Family Preference OP PT Therapy Barriers to Discharge No Discharge Plan Home Community Services Physical Therapy Transportation Arrangement Spouse Referrals Initiated None needed Whiteboard Updated in Patient Room with Yes name and ext. # of Extension Forester Review Status In Process Please Provide Date Initial DC 01/22/23 Assessment Was Performed Next Review Type Continued Stay Review Pre-Anesthesia Assessment Start: 01/13/23 09:35 Freq: Status: Complete Protocol: Document 01/13/23 09:35 [facility] (Rec: 01/13/23 10:41 CAB [id number]) Pre-Anesthesia Assessment Preferred Name Alex Patient Information Reviewed Via Phone Assessment Assessment Completed With Patient Diagnostic Results BMP/CMP,CBC,EKG Comment Outside labs/EKG scanned. Prior EKG 12/03/21 scanned, no sig change Primary Care Provider Marybeth Zelaya Seen Specialist in Last 12 Months Yes Specialist Seen Orthopedist Primary Language Yoruba Preferred Language Yoruba Broadcast Operations Director Required No Height 182.88 cm Weight 138.346 kg Body Mass Index (BMI) 41.3 Hearing Ability Normal Visual Assist Glasses Dentition Type Teeth, Natural Present Barriers to Learning None Other Aids No Hx Anesthesia Reactions No: Sleep apnea-Does not tolerate CPAP Hx Family Anesthesia Reaction No Hx Malignant Hyperthermia No Hx Blood Transfusions No Hx Blood Transfusion Reaction No Anesthesia Review Requested No Telephone Clerks Supervisor No alcohol intake current alcohol intake frequency a few times a month Smoking Status Former smoker Tobacco type cigarettes,cigars how long ago did patient quit smoking Quit 1996, occasional cigar Substance Use Type does not use Pain Present Pain Reported Musculoskeletal Symptoms Abnormal Gait,Back Pain, Difficulty Walking,Joint Pain, Radiating Pain into Limb History of Falling (Recent or History of Yes ) Patient is completely paralyzed or No completely immobile Mental Status Oriented to own ability Is patient on oxygen? No Does patient have FERNANDO/SOB No Hx Sleep Apnea Yes: Intolerant to CPAP CPAP/BIPAP use prescribed not used Currently Taking a Beta Martha No Can You Climb a Flight of Stairs Without Yes SOB Hx Chest Pain No Hx SOB No Hx Syncope or Dizziness No Anti-Coagulant Therapy No Has a Electronic Gaming Device Supervisor No Cardiac Testing No Hx Pacemaker/ICD No Pacemaker Rep Required? No Cardiac Clearance Received Not Applicable Diet Type At Home Regular,Low Carb Dysphagia No Gastrointestinal Symptoms Constipation,Reflux Chronic UTI No Urinary Catheter Present No Hx Urinary Self Catheterization No Diabetes Yes: Checks blood sugar twice a day HgbA1C 8.8 Date 12/06/22 Comment Increased from 6.4 on 12/09/21 Hx Drug Resistant Organism No Presence of External or Internal Medical Yes: Right hip/knee prosthesis Devices , left shoulder Received a COVID vaccine? Yes Received all doses? Yes Marital Status Lives With spouse,children Current Living Arrangements House Number of Floors (Floors) Two Floors Support System Spouse Does the Patient Have Assistance After Yes Surgery Patient Discharge Plan Description Return Home Comment Pt advised 1-2 day length of stay per surgeon Feels Safe in Current Environment Yes Been Physically Hurt or Threatened By a No Person in Current Environment Do you have thoughts of harming yourself None or others? Are you currently considering suicide? No Do you have a plan to hurt yourself or No Plan others? Do You Have Any Spiritual Beliefs That No May Affect Your HC Choices? Do You Have Any Cultural Practices That No May Affect Your HC Choices? Who Can We Speak to About Patient's Care Family, friends Identifying Code for Release of Patient Declines to issue Information Health Care Proxy/Next of Kin Tracee () Health Care Proxy Emergency Contact Name Tracee () Emergency Contact Advance Directives? No Power of Risk Intern No PAC Instructions Diabetes instructions,Durable medical equipment,Medications to take/avoid,Nasal antibiotic ,No ETOH/petroleum product on skin DOS,NPO,Pre-surgical wash ,Sensory aids,Sturdy shoes/ comfortable clothes,Do not bring valuables and remove jewelry
[2023-01-22 16:33] VITALS: BP 121/71; PULSE 73; RESP 18; TEMP 37.5; O2SAT 95
[2023-01-22 19:20] VITALS: BP 137/59; PULSE 68; RESP 21; TEMP 36.9; O2SAT 91
[2023-01-22] MEDS: OXYCODONE IR 10 MG TABLET PO (19:53)
[2023-01-22] MEDS: SENNOSIDES 8.6 MG TABLET 17.2 MG PO (21:33)
[2023-01-22] MEDS: DOCUSATE 100 MG CAPSULE PO (21:33)
[2023-01-22] MEDS: diphenhydrAMINE 25 MG TABLET 50 MG PO (21:34)
[2023-01-23] MEDS: OXYCODONE IR 10 MG TABLET PO ×3 (03:08→10:55)
--- NOTE | 2023-01-23 07:37 | P.DS_ITS ---
History of Present Illness History of Present Illness Date Patient Seen: 01/23/23 Time Patient Seen: 07:38 Chief complaint: back pain Narrative: Back pain has been moderate. Denies fever/ chills. No nausea vomiting. Patient's is home to assist him. Denies headache. Discharge Providers Provider Date of admission: 01/21/23 11:00 Discharge Date: 01/23/23 Primary care physician: Marybeth Zelaya MD Consults: 01/21/23 19:48 Consult to Occupational Therapy Evaluate & Treat Comment: Physician Instructions: Evaluate and treat Consult to Physical Therapy Evaluate & Treat Comment: Physician Instructions: Evaluate and Treat 01/21/23 20:08 Consult to Occupational Therapy Evaluate & Treat Comment: Physician Instructions: Evaluate and treat Consult to Physical Therapy Evaluate & Treat Comment: Physician Instructions: Evaluate and Treat Discharge provider: Khanh Duran PA-C Summary Hospital Course Discharge Diagnosis: 1. L4-5, L5-S1 spinal stenosis 2. 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 L4-5, L5-S1 spondylosis with radiculopathy Dural tear Hospital Course: 1. L4-5, L5-S1 Postero-lateral and posterior interbody fusion 2. L4-5, L5-S1 interbody cage placement. 3. L4-5, L5-S1 decompressive laminectomy with bilateral facetecomies 4. L4-5, L5-S1 Posterior segmental instrumentation 5. [place] of bone marrow from iliac crest 6. Utilization of microsurgical technique and operating microscope 7. Utilization of robotic assisted navigation Same procedure as scheduled: Yes Indications: Patient has been having chronic back pain and worsening lumbar radiculopathy and symptoms of neurogenic claudication. Patient failed multiple conservative management with worsening pain weakness and numbness in his lower extremity.? Patient has been having difficulty performing activity of daily living.? After discussing risks benefits of treatment options, patient elected proceed with surgery. Surgeon: Eligio Edward Cad Cam Programmer: Magdalena Mccord Click Yes if Unassisted: No Anesthesia Type: General Operative Notes Closure Type: primary Specimen(s): other (L4-5 epidural mass/cyst) Prosthetic devices, grafts, tissues, transplants, or devices: Globus CREO MIS screws, Rise cages Applied: catheter Estimated Blood Loss (mL): 100 Blood products transfused: none Patient admitted to the hospital for the above-mentioned procedure. Patient consented to the same. Patient underwent lumbar fusion January 21, 2023.During process of performing the L4 laminectomy and left-sided facetectomy at L4-5, there is a significant epidural mass that was encountered.? This mass was causing significant compression on the thecal sac as well as the left-sided exiting nerve root at L4-5 level.? And the mass was blended together along with the ligamentum flavum along with the dura of the thecal sac.? Parts of the cystic content was sent off for pathology.? Parts of the cystic structure was intimately connected to the dura. Partial excision of the cyst was performed during the process of laminectomy facetectomy and decompression.? A small dural defect was identified after partial cyst excision was performed.? DuraGen and Tisseel was used to patch the dural defect.? No CSF leakage was identified. Patient mobilize with physical therapy yesterday. Pain is better controlled. No headache. Discharge home today in stable condition. Exam Vital Signs (past 8 hours): Oxygen Delivery Method Room Air Oxygen Flow Rate 0 Narrative Exam Narrative: 57-year-old male resting comfortably in bed in no apparent distress. Motor functions intact bilateral lower extremities. Sensation grossly intact to light touch bilateral lower extremities. Const General: cooperative and comfortable Nutritional Appearance: obese (BMI 40.4) Orientation: alert Resp Effort & Inspection: normal respiratory effort and able to speak in complete sentences Objective Labs 01/22/23 04:58 [facility] Medical History Acid reflux Asthma Bleeding ulcer (~1996) Bursitis of both knees Diabetes Easy bruisability Eczema Gout History of COVID-19 (08/2021) HTN (hypertension) Meningitis spinal (~1996) Osteoarthritis Psoriasis Sleep apnea Torn rotator cuff (01/2021) Surgical History H/O vasectomy History of arthroplasty of right knee (07/25/20) History of total right hip replacement (12/26/21) Hx of arthroscopy of left knee Hx of eye surgery (~2003) Hx of hand surgery (~2020) Hx of hernia repair Hx of shoulder surgery (~02/2022) Social History household members: spouse and children Smoking Status: Current some day smoker alcohol intake: current Discharge Assessment & Plan Assessment and Plan Assessment: Patient progressing as expected status post lumbar fusion Plan of Treatment: Weightbearing as tolerated with limited bending twisting and lifting Multimodal pain management Discharge home today in stable condition Discharge Plan Discharge Plan Patient Disposition: Home Discharge orders & Medications Prescriptions: New acetaminophen 325 mg Tablet 650 mg PO BEDTIME Qty: 60 0RF hydroxyzine pamoate 25 mg Capsule 25 mg PO Q4HR PRN (Reason: Nausea And Vomiting) Qty: 30 0RF oxycodone 10 mg Tablet 10 mg PO Q3H PRN (Reason: Pain, Severe (7-10)) Qty: 40 0RF Continued metformin 500 mg Tablet 1,000 mg PO BID fexofenadine 180 mg Tablet 180 mg PO DAILY montelukast 10 mg Tablet 10 mg PO DAILY levalbuterol tartrate 45 mcg/actuation Hfa Aerosol Inhaler 2 puff INHALATION Q4-6H PRN (Reason: Asthma) fluticasone propion-salmeterol [Advair HFA] 230-21 mcg/actuation Hfa Aerosol Inhaler 2 puff INHALATION BID PRN (Reason: Asthma flare) Novolin N NPH U-100 Insulin 100 unit/mL Suspension 40 unit SUBCUT BID diphenhydramine-acetaminophen [Acetaminophen PM] 25-500 mg Tablet 2 tab PO BEDTIME lisinopril 40 mg Tablet 40 mg PO DAILY acetaminophen 325 mg tablet 650 mg PO Q6HR PRN (Reason: Pain) aspirin 81 mg tablet,delayed release (DR/EC) 81 mg PO DAILY pioglitazone 30 mg Tablet 45 mg PO DAILY polyethylene glycol 3350 17 gram Powder In Packet 17 gm PO DAILY PRN (Reason: Constipation) Qty: 10 0RF ibuprofen 400 mg Tablet 400 mg PO Q6HR Qty: 60 0RF Follow up/Referrals: Eligio Edward MD [Physician] - As previously scheduled (Follow up with Khanh Duran PA-C, on 02/04/2023 @ 3:10 pm at [facility] office in [place].) Marybeth Zelaya MD [Primary Care Provider] - Diet/Activity/Treatments Diet: Diet as Tolerated Activity: No deep bending or twisting. No lifting more than 10 pounds. Cold/Heat Therapy: Heating pad to low back as needed for pain. Skin/Wound/Dressing Care Report to your healthcare provider any signs of infection, such as:: chills, fever, night sweats, unusual drainage and unusual redness Dressing: May shower. Keep dressing as dry as possible. If dressing becomes wet or dirty, may remove and replace with clean, dry gauze. No bathing or otherwise soaking incisions. Do not apply any creams, lotions, or ointments to incisions. Visit Report/Discharge Packet Instructions: DI for Prescription Opioid Use, DI for Transforaminal Lumbar Interbody Fusion Stand Alone Forms: Patient Portal/API, Stroke Signs & Symptoms, Surgery Discharge Discharge Data Primary Care Provider: Marybeth Zelaya VTE Deep Vein Thrombosis/Pulmonary Embolism Present on Admission: No
[2023-01-23 08:17] VITALS: BP 165/77; PULSE 80; RESP 18; TEMP 37.1; O2SAT 97
[2023-01-23 08:32] VITALS: BP 166/77; PULSE 80
[2023-01-23] MEDS: lisinopriL 20 MG TABLET 40 MG PO (08:32)
[2023-01-23] MEDS: ACETAMINOPHEN 325 MG TABLET 650 MG PO (08:33)
[2023-01-23] MEDS: DOCUSATE 100 MG CAPSULE PO (08:33)
[2023-01-23] MEDS: METFORMIN HCL 500 MG TABLET 1000 MG PO (08:34)
[2023-01-23] MEDS: INSULIN NPH 100 UNIT/ML 10ML VIAL 40 UNIT SUBCUT (08:38)
--- NOTE | 2023-01-23 09:34 | PT-IP ANOTE ---
Pt reports not having any PT needs, will be d/c when spouse gets here this morning.
--- NOTE | 2023-01-23 10:57 | OT.IPNOTE ---
Attempted to see pt for OT services. Per pt, he showered this morning with his 's assist. Pt and spouse feel confident for discharge home. No OT needs today.
--- NOTE | 2023-01-23 12:36 | PC.NURSE ---
Pt is A&Ox4, VSS, afebrile on RA. He reports pain is well controlled with scheduled tylenol and prn oxycodone. He is able to work with PT and is cleared today from surgical standpoint for discharge home with . He is able to shower and use FWW to ambulate short distances in his room. is supportive at bedside. Dressing to back is changed. Thompson c/d/i without swelling or drainage. He verbalizes understanding of discharge medications, activity limitations, site care, s/sx of infection/complications as well as follow up appointment with MD Edward post operatively. He is escorted via w/ch to private vehicle this a.m. for discharge home with with all of his belongings including his own inhalers which were returned by pharmacy.
== END 2023-01-23 11:15 | disposition home or self-care (01) | DRG 454 ==
PROVIDERS: Physician Assistant; Admitting Provider Orthopaedic Surgery Orthopaedic Surgery of the Spine; PCP Family Medicine; Referring Provider Orthopaedic Surgery Orthopaedic Surgery of the Spine; Visit Provider Orthopaedic Surgery Orthopaedic Surgery of the Spine
PROC: 0SG00AJ Fusion of Lumbar Vertebral Joint with Interbody Fusion Device, Posterior Approach, Anterior Column, Open Approach (ICD-10-PCS; principal; 2023-01-21 12:45)
DX: M48.061 Spinal stenosis, lumbar region without neurogenic claudication (principal); G97.41 Accidental puncture or laceration of dura during a procedure; M47.26 Other spondylosis with radiculopathy, lumbar region; M48.07 Spinal stenosis, lumbosacral region; M47.27 Other spondylosis with radiculopathy, lumbosacral region; G96.191 Perineural cyst; E11.9 Type 2 diabetes mellitus without complications; J45.909 Unspecified asthma, uncomplicated; I10 Essential (primary) hypertension; F17.200 Nicotine dependence, unspecified, uncomplicated; Z79.84 Long term (current) use of oral hypoglycemic drugs; Z20.822 Contact with and (suspected) exposure to COVID-19; Z79.4 Long term (current) use of insulin
CPT/HCPCS: 36415; 72100; 76000; 82962; 85014; 85018; 97161; 97165; 97530; 97535; S2900; C9290; J0171; J0690; J1100; J1170; J2250; J2405; J2704; J3010